=== PATIENT | male | born 1950 | race Caucasian/White ===

== ENCOUNTER → 2017-03-22 | Day surgery (SDC) | payer BC ==
[~2017-03-22] MED LIST: AMIO200T2 PO; ATOR40TA PO; CA C1TAB28 PO; CRESTOR10 MG PO; CYAN250T5 PO; DABI150C PO; FOLI1TAB16 PO; FURO40TA4 PO; HYDROmorphone 2 MG/ML VIAL IV PRN; IV RINGERS,LACTATED 1000ML 1,000 ML IV SCH; LIDOCAINE 1% 1 ML SYRINGE. ID PRN; LISI2.5T PO; MAGN400T3 PO; MELA3TAB2 PO; MORPHINE SULFATE 2 MG/ML DISP.SYRIN. IV PRN; NAPR220C4 PO; ONDANSETRON PF 4 MG/2 ML VIAL. IV PRN; POTA10TA5 PO; PROCHLORPERAZINE 10 MG/2 ML VIAL. IV PRN; PROPOFOL 20 ML IV ONE; VITA10003 PO; VITA1CAP PO; fentaNYL PF VIAL 100 MCG/2 ML VIAL IV PRN
[2017-03-22 08:13] VITALS: BP 134/78
--- NOTE | 2017-03-23 16:35 | PATHOLOGY ---
PATHOLOGY REPORT * * * * * * * * FINAL DIAGNOSIS: Esophageal biopsies, distal esophagus: - Segments of hyperplastic squamous esophageal mucosa and esophagogastric mucosa showing chronic inflammation, consistent with reflux esophagitis. COMMENT: Sections of the distal esophageal biopsy reveal multiple segments of hyperplastic squamous esophageal mucosa and a segment of esophagogastric mucosa showing chronic inflammation. The findings are consistent with reflux esophagitis. There is no evidence of Olivo's change, dysplasia or malignancy. (JPM:pit; 03/23/2017) REPORT ELECTRONICALLY SIGNED BY: Stephon Hernandez M.D. DATE/TIME: 03/23/2017 16:34 * * * * * * * * GROSS PATHOLOGY: Received in formalin labeled "Juan F Real, distal esophageal biopsies," are three segments of sierra soft tissue measuring from 0.2 up to 0.3 cm in maximum dimension. The specimen is submitted entirely in cassette A1. (JPM; 03/22/17) INITIAL CPT CODE(S): A; 90066 Professional services performed by [facility] [address] Technical services performed by [facility] at [address] [place] [address]. SPECIMEN(S) RECEIVED: A.Distal esophageal biopsies CLINICAL HISTORY: Olivo's, family history of colon cancer PATIENT: UJAN F REAL /AGE: 1107/26/1950 (Age: 66) PATIENT #: [id number] ALT CASE #: SPECIMEN COLLECTION DATE: 03/22/2017 SPECIMEN RECEIVED DATE: 03/22/2017 [facility] - [address] [place] [address] - PHONE: [phone] * * * END OF REPORT * * *
== END | disposition home or self-care (01) ==
LOC: ENDOS 05:42
PROVIDERS: ATTEND Internal Medicine Gastroenterology
DX: Z09 Encounter for follow-up examination after completed treatment for conditions other than malignant neoplasm (principal); Z80.0 Family history of malignant neoplasm of digestive organs; K57.30 Diverticulosis of large intestine without perforation or abscess without bleeding; K64.0 First degree hemorrhoids; K22.70 Barrett's esophagus without dysplasia; D50.9 Iron deficiency anemia, unspecified; E78.00 Pure hypercholesterolemia, unspecified; E78.5 Hyperlipidemia, unspecified; E11.9 Type 2 diabetes mellitus without complications; I10 Essential (primary) hypertension; M19.90 Unspecified osteoarthritis, unspecified site; Z72.89 Other problems related to lifestyle
CPT/HCPCS: 43239; 45378; 88305; J2704

== ENCOUNTER → 2019-05-09 | Outpatient (CLI) | payer MEDICARE ==
[2017-03-22 08:13] VITALS: BP 134/78
[~2019-05-09] MED LIST changes: -AMIO200T2 PO; +AMIO200T4 PO; -HYDROmorphone 2 MG/ML VIAL IV PRN; -IV RINGERS,LACTATED 1000ML 1,000 ML IV SCH; -LIDOCAINE 1% 1 ML SYRINGE. ID PRN; -MELA3TAB2 PO; +MELA3TAB56 PO; -MORPHINE SULFATE 2 MG/ML DISP.SYRIN. IV PRN; -ONDANSETRON PF 4 MG/2 ML VIAL. IV PRN; +POTA10TA12 PO; -POTA10TA5 PO; -PROCHLORPERAZINE 10 MG/2 ML VIAL. IV PRN; -PROPOFOL 20 ML IV ONE; -fentaNYL PF VIAL 100 MCG/2 ML VIAL IV PRN
--- NOTE | 2019-05-09 09:22 | KCIC ---
MRI Brain without contrast History: TIA, hearing loss for the last 3-4 years, memory loss, unsteady gait Technique: Multiplanar, multisequential noncontrast MR imaging was performed of the brain. Comparison: None Findings: There is some motion. There is no evidence of recent infarct or cytotoxic edema. Ventricular size is proportionate to the sulcal spaces, mild supratentorial atrophy somewhat greater of the parietal lobes.There is no significant midline shift, intraaxial mass effect, or focal abnormal extra-axial fluid collection. There is [id number] T2 and FLAIR hyperintense signal abnormality of the bilateral periatrial/parietal white matter greater on the left, otherwise mild T2 and FLAIR hyperintense signal abnormality of the supratentorial parenchyma. There is a focus of likely nonspecific calcification along the anterior left falx. There are several old bilateral cerebellar lacunar infarcts, also of the left ivonne and left basal ganglia. There are some small foci of old microhemorrhage of the left lentiform nucleus and right cerebellum. There has been lens surgery bilaterally. There is mild bilateral ethmoid air cell mucosal thickening. Mastoid air cells are mostly aerated, small focus of fluid on the right. Cerebellar tonsils are normal in location. There is preservation of the major intracranial flow-voids at the skull base.. There is no significant abnormality of the pineal gland or pituitary gland. There is preserved marrow signal of the clivus. Impression: 1. There is no evidence of recent infarct or intracranial mass effect. There is mild supratentorial atrophy somewhat more greatly affecting the parietal lobes. There are several old lacunar infarcts of the bilateral cerebellum, also foci of the left ivonne and left basal ganglia. Other scattered T2 and FLAIR hyperintense signal abnormality of the supratentorial parenchyma greatest of the parietal and periatrial white matter is probably due to chronic microvascular ischemic disease. Electronically signed by: Denis Durham MD (05/09/2019 9:19 AM) [facility]
== END | disposition home or self-care (01) ==
LOC: KCIC MRI 08:04
PROVIDERS: ATTEND Family Medicine
DX: I63.9 Cerebral infarction, unspecified (principal); G31.89 Other specified degenerative diseases of nervous system; G45.9 Transient cerebral ischemic attack, unspecified
CPT/HCPCS: 70551

== ENCOUNTER 2020-05-11 07:51 | Inpatient (IN) | payer MEDICARE ==
[~2020-05-11] VITALS: Ht 182.9 cm; Wt 98.3 kg
[~2020-05-11 07:51] MED LIST changes: -MAGN400T3 PO; +MAGN400T5 PO; +MELA3TAB4 PO; -MELA3TAB56 PO
[2020-05-11] MEDS ORDERED: PIPERACILLIN/TAZOBACTAM 3.375 GM in IV NORMAL SALINE 50ML 50 ML IV ONE (08:15)
[2020-05-11] MEDS ORDERED: ACETAMINOPHEN 325 MG TABLET. PO ONE (08:15)
[2020-05-11 08:29] LABS: BASO % 0 % (0-3); EOS % 0 % (0-3); HEMATOCRIT 43.1 % (39.0-53.0); HEMOGLOBIN 14.7 g/dL (13.0-17.5); LYMPH # 0.6 x10^3/uL (1.0-4.8); LYMPH % 5 % (24-48); MEAN CORPUSCULAR HEMOGLOBIN 34 pg (25-35); MEAN CORPUSCULAR HGB CONC 34 g/dL (31-37); MEAN CORPUSCULAR VOLUME 99 fL (79-100); MONO # 0.3 x10^3/uL (0.0-1.1); MONO % 2 % (0-9); NEUT # 10.8 x10^3/uL (1.8-7.7); NEUT % 92 % (31-73); PLATELET COUNT 247 x10^3/uL (140-400); RED BLOOD COUNT 4.37 x10^6/uL (4.30-5.70); RED CELL DISTRIBUTION WIDTH 13.5 % (11.5-14.5); WHITE BLOOD COUNT 11.7 x10^3/uL (4.0-11.0)
[2020-05-11 08:41] LABS: CALCIUM 9.2 mg/dL (8.5-10.1); CREATININE 1.3 mg/dL (0.7-1.3); GFR 54.7; POTASSIUM 3.8 mmol/L (3.5-5.1)
[2020-05-11 08:46] LABS: ALBUMIN/GLOBULIN RATIO 1.2 (1.0-1.7); TOTAL BILIRUBIN 1.1 mg/dL (0.2-1.0); TOTAL PROTEIN 7.4 g/dL (6.4-8.2)
[2020-05-11 09:07] LABS: BILIRUBIN,URINE NEGATIVE (NEG); CLARITY,URINE CLEAR; COLOR,URINE YELLOW
[2020-05-11 09:08] LABS: BACTERIA,URINE FEW /HPF (0-FEW); HYALINE CASTS, URINE OCCASIONAL /HPF; NITRITE,URINE NEGATIVE (NEG); PH,URINE 6.5 (<5.0-8.0); PROTEIN,URINE NEGATIVE (NEG-TRACE); RBC,URINE 0 /HPF (0-2); SQUAMOUS EPITHELIAL CELL,UR OCC /LPF; WBC,URINE OCC /HPF (0-4)
[2020-05-11] MEDS ORDERED: IOHEXOL 300 MG/ML 100ML VIAL. IV ONE (09:15)
[2020-05-11] MEDS ORDERED: CONTRAST GIVEN. MC PRN (09:15)
[2020-05-11] MEDS ORDERED: IOHEXOL 240 MG/ML 50ML VIAL. PO ONE (09:15)
[2020-05-11 09:46] LABS: C-REACTIVE PROTEIN 1.2 mg/L (0-3.3)
--- NOTE | 2020-05-11 10:50 | RAD ---
Exam: CT abdomen/pelvis with intravenous contrast Indication: Abdominal pain, fever Comparison: CT abdomen and pelvis 05/29/2015 Technique: Helical CT imaging performed of the abdomen and pelvis after the intravenous administration of 60 mL Omnipaque 300 intravenous contrast contrast. Sagittal and coronal reformats were obtained. One or more of the following individualized dose reduction techniques were utilized for this examination: 1. Automated exposure control 2. Adjustment of the mA and/or kV according to patient size 3. Use of iterative reconstruction technique. Findings: Lower chest: Scattered atelectasis in the dependent lower lobes. There are calcified hilar lymph nodes and extensive coronary artery calcifications. Surgical changes of median sternotomy noted. Heart size is normal. Liver: The liver is normal in size without focal lesion. Gallbladder/Biliary Tree: Cholelithiasis is noted. Bowel ducts are normal. Pancreas: Normal. Spleen: Normal. Adrenal Glands: Normal. Kidneys/Ureters/Bladder: Kidneys are normal in size and enhance symmetrically. No hydronephrosis or nephrolithiasis. Ureters and bladder are normal. Reproductive Organs: Prostate gland is normal. Stomach, small bowel, and colon: The appendix is dilated measuring 1.2 cm with marked mural thickening. There is mural thickening of the cecum and a long segment of the terminal ileum (approximately 8 cm in length). Mild fat stranding, trace free fluid, multiple small lymph nodes are seen in the right lower quadrant. No small bowel obstruction. There is mild sigmoid diverticulosis. Surgical changes of gastric bypass noted. Vasculature: Abdominal aorta is normal in caliber. Mild calcified aortoiliac atherosclerosis. Lymph Nodes: There are multiple prominent periaortic and mesenteric lymph nodes, similar to 2015. Other small lymph nodes in the right lower quadrant are new and likely reactive. Peritoneum and retroperitoneum: Trace free fluid in the right lower quadrant. No free air. No evidence of abscess. Bones: There is moderate degenerative disc disease in the lower lumbar spine. Moderate osteoarthrosis of the hips. Impression: 1. Findings of uncomplicated acute appendicitis. Wall thickening in the terminal ileum and cecum is likely reactive. Alternatively, this could all be seen with acute inflammatory bowel disease. 2. Cholelithiasis. 3. Sigmoid diverticulosis. Critical results were discussed by Dr. Dodson with Dr. August at 10:42 AM on 05/11/2020. FOR INTERNAL CODING PURPOSES Critical result: Findings discussed with REUBEN AUGUST at 05/11/2020 10:45 AM. RESULT CODE: (C) 1. Electronically signed by: Jasmyne Dodson MD (05/11/2020 10:46 AM) [id number]
[2020-05-11] MEDS ORDERED: MORPHINE SULFATE 10 MG/ML VIAL. IV ONE (11:15)
--- NOTE | 2020-05-11 12:42 | HP ---
ADMIT DATE: 05/11/2020 CHIEF COMPLAINT: Abdominal pain, weakness, fevers and nausea. HISTORY OF PRESENT ILLNESS: The patient is a pleasant middle-aged male, who presented with the above chief complaints. Basically, he has been having some abdominal pain for the past day or two. He tried taking some [id number]-wbo-[id number] medicines, but that did not work. He rates his symptoms at 9/10. It is worse with food, better with no food, describes it as agonizing. When he got to the ER, he had a temperature of 102. We gave him some Tylenol, his temperature has normalized. We have done a CAT scan now that is showing acute appendicitis. He also seems to have AFib with RVR. I discussed the case with ER physician and the nurse. We are going to admit the patient and consult Dr. Valdivia. I just got a call from Dr. Valdivia. He is checking into the situation as well. PAST MEDICAL HISTORY: Gastric bypass, hypertension, hyperlipidemia, chronic anticoagulation, AFib, arthritis. ALLERGIES: LISINOPRIL. FAMILY HISTORY: Diabetes. SOCIAL HISTORY: He does not drink, smoke or take drugs. He lives at home with his . MEDICATIONS: Reviewed, please refer the MRAD. REVIEW OF SYSTEMS: GENERAL: No history of weight change. SKIN: No bruising, hair changes or rashes. EYES: No blurred, double or loss of vision. NOSE AND THROAT: No history of nosebleeds, hoarseness or sore throat. HEART: No history of palpitations, chest pain or shortness of breath on exertion. LUNGS: Denies cough, hemoptysis, wheezing or shortness of breath. GASTROINTESTINAL: He complains of abdominal pain, although he is feeling better now. GENITOURINARY: No history of frequency, urgency, hesitancy or nocturia. NEUROLOGIC: Denies history of numbness, tingling, tremor. PSYCHIATRIC: No history of panic, anxiety or depression. ENDOCRINE: No history of heat or cold intolerance, polyuria or polydipsia. EXTREMITIES: Denies muscle weakness, joint pain, pain on walking or stiffness. PHYSICAL EXAMINATION: VITALS: Within normal limits and are stable. GENERAL: No apparent distress. Alert and oriented. HEENT: Normal cephalic atraumatic, external auditory canals are patent EYES: Extraocular muscles are intact, pupils are equally round and reactive to light and accommodation MUSCULOSKELETAL: Well developed, well nourished, good range of motion ENDOCRINE: No thyromegaly was palpated LYMPHATICS: No cervical chain or axillary nodes were noted HEMATOPOIETIC: No bruising NECK: Supple, no JVD, no thyromegaly was noted. LUNGS: Clear to auscultation in all lung hughes without rhonchi or wheezing. HEART: He has irregular S1, S2. ABDOMEN: He has decreased bowel sounds with some slight tenderness in the right lower quadrant. EXTREMITIES: Without any cyanosis, clubbing, or edema. Pedal pulses intact, Homans sign is negative. NEUROLOGIC: He is a little anxious, but stable and pleasant. PSYCHIATRIC: Normal affect, normal mood. Stable. SKIN: No ulcerations or rashes, good skin turgor, no jaundice. VASCULAR: Good capillary refill, neurovascular bundle appears to be intact. LABORATORY DATA: White count 11, hemoglobin 14, platelets 247. Electrolytes: Sodium 133, potassium 3.8, chloride 95, bicarbonate 29, BUN 15, creatinine 1.3, glucose 156. ASSESSMENT AND PLAN: Appendicitis, atrial fibrillation with RVR, hyponatremia, leukocytosis. The patient has been admitted. We will start IV antibiotics. Consult General Surgery. I talked to Dr. Valdivia. He will be having someone checked with the patient shortly. Home meds. We will consider IV rate control if necessary. Consult Cardiology. DVT prophylaxis. Full code. Long-term prognosis is guarded. MARKEL CERDA DO DR: ADILENE/roger JOB#: [id number] / [id number]
--- NOTE | 2020-05-11 13:12 | PDOC2 ---
ORI HAJI REAL ESTATE MANAGEMENT SPECIALIST 05/11/20 1312: CONSULT Date of Consult Date of Consult DATE: 05/11/20 TIME: 13:06 Reason for Consult Reason for Consult: appendicitis Referring Physician Referring Physician: ER Identification/Chief Complaint Chief Complaint abdominal pain Source Source: Chart review, Patient History of Present Illness Reason for Visit: Very poor historian He reports woke up with lower abdominal pain. It did not improve, tried some prune juice, however the pain became severe enough he could not walk. Denies nausea or emesis. Denies any IBD hx Pain is now improved with medication. Fevers on admission to ER Took his pradaxa this AM Past Medical History Cardiovascular: CAD, CHF, HTN, Hyperlipidemia CENTRAL NERVOUS SYSTEM: Dementia Hepatobiliary: Cirrhosis Endocrine: Diabetes Past Surgical History Past Surgical History: Hernia Repair, Other (gastric bypass) Family History Family History: Other (noncontributory to current illness ) Social History No ALCOHOL: other (reports no heavy drinking in over 10 years, does still have an occassional beer) Drugs: None Current Medications Current Medications Current Medications Acetaminophen (Tylenol) 650 mg 1X ONCE PO Last administered on 05/11/20at 08:26; Start 05/11/20 at 08:15; Stop 05/11/20 at 08:16; Status DC Piperacillin Sod/ Tazobactam Sod 3.375 gm/Sodium Chloride 50 ml @ 100 mls/hr 1X ONCE IV Last administered on 05/11/20at 08:27; Start 05/11/20 at 08:15; Stop 05/11/20 at 08:44; Status DC Iohexol (Omnipaque 240 Mg/ml) 30 ml 1X ONCE PO Last administered on 05/11/20at 09:40; Start 05/11/20 at 09:15; Stop 05/11/20 at 09:16; Status DC Iohexol (Omnipaque 300 Mg/ml) 60 ml 1X ONCE IV Last administered on 05/11/20at 09:15; Start 05/11/20 at 09:15; Stop 05/11/20 at 09:16; Status DC Info (CONTRAST GIVEN -- Rx MONITORING) 1 each PRN DAILY PRN MC SEE COMMENTS; Start 05/11/20 at 09:15; Stop 05/13/20 at 09:14 Morphine Sulfate (Morphine Sulfate) 5 mg 1X ONCE IV Last administered on 05/11/20at 11:28; Start 05/11/20 at 11:15; Stop 05/11/20 at 11:16; Status DC Active Scripts Active Reported Melatonin 3 Mg Tablet 10 Mg PO HS Lisinopril 2.5 Mg Tablet 1 Tab PO DAILY B-12 (Cyanocobalamin (Vitamin B-12)) 250 Mcg Tablet 250 Mcg PO DAILY Aleve (Naproxen Sodium) 220 Mg Capsule 220 Mg PO PRN PRN Lipitor (Atorvastatin Calcium) 40 Mg Tablet 1 Tab PO QHS Vitamin D3 1,000 Unit Tablet (Ca Cmb No.1/Vit D3/B-6/Fa/B12) 1 Each Tablet 1 Each PO DAILY Vitamin A 10,000 Unit Capsule 10,000 Unit PO DAILY Folic Acid 1 Mg Tablet 1 Mg PO DAILY Magnesium Oxide 400 Mg Tablet 400 Mg PO BID Pradaxa (Dabigatran Etexilate Mesylate) 150 Mg Capsule 150 Mg PO BID Amiodarone Hcl 200 Mg Tablet 100 Mg PO DAILY Furosemide 40 Mg Tablet 40 Mg PO DAILY Klor-Con 10 (Potassium Chloride) 10 Meq Tablet.er 10 Meq PO DAILY Allergies Allergies: Coded Allergies: lisinopril (Verified Allergy, Intermediate, 03/22/17) cough ROS General: YES: Other (+ fevers ); No: Chills PSYCHOLOGICAL ROS: No: Anxiety, Depression Eyes: No Blurry vision, No Double vision HEENT: No: Heacaches, Sore Throat Hematological and Lymphatic: YES: Bleeding Problems; No: Blood Clots Respiratory: No: Cough, Shortness of breath Cardiovascular: No Chest Pain, No Palpitations Gastrointestinal: Yes Other (see hpi) Genitourinary: No Dysuria, No Hematuria Musculoskeletal: No Joint Pain, No Muscle Pain Neurological: No Impaired Coord/balance, No Numbness/Tingling Skin: No Pruritus, No Rash Physical Exam General: Alert, Oriented X3, Cooperative HEENT: Atraumatic, PERRLA Lungs: Clear to auscultation, Normal air movement Heart: Other (tachy, afib) Abdomen: Soft, Other (currently nontender on exam) Extremities: No clubbing, No cyanosis Skin: No rashes, No breakdown Neuro: Normal speech, Sensation intact Psych/Mental Status: Mental status NL, Mood NL MUSCULOSKELETAL: No deformity, No swelling Vitals VITALS Vital Signs Date Time Temp Pulse Resp B/P (MAP) Pulse Ox O2 Delivery O2 Flow Rate FiO2 05/11/20 11:28 17 97 Room Air 05/11/20 08:00 102.2 112 168/80 (109) 102.2 Labs Labs Laboratory Tests Test 05/11/20 08:10 05/11/20 08:36 05/11/20 11:35 05/11/20 12:08 White Blood Count 11.7 x10^3/uL (4.0-11.0) Red Blood Count 4.37 x10^6/uL (4.30-5.70) Hemoglobin 14.7 g/dL (13.0-17.5) Hematocrit 43.1 % (39.0-53.0) Mean Corpuscular Volume 99 fL (79-100) Mean Corpuscular Hemoglobin 34 pg (25-35) Mean Corpuscular Hemoglobin Concent 34 g/dL (31-37) Red Cell Distribution Width 13.5 % (11.5-14.5) Platelet Count 247 x10^3/uL (140-400) Neutrophils (%) (Auto) 92 % (31-73) Lymphocytes (%) (Auto) 5 % (24-48) Monocytes (%) (Auto) 2 % (0-9) Eosinophils (%) (Auto) 0 % (0-3) Basophils (%) (Auto) 0 % (0-3) Neutrophils # (Auto) 10.8 x10^3/uL (1.8-7.7) Lymphocytes # (Auto) 0.6 x10^3/uL (1.0-4.8) Monocytes # (Auto) 0.3 x10^3/uL (0.0-1.1) Eosinophils # (Auto) 0.0 x10^3/uL (0.0-0.7) Basophils # (Auto) 0.0 x10^3/uL (0.0-0.2) Sodium Level 133 mmol/L (136-145) Potassium Level 3.8 mmol/L (3.5-5.1) Chloride Level 95 mmol/L (98-107) Carbon Dioxide Level 29 mmol/L (21-32) Anion Gap 9 (6-14) Blood Urea Nitrogen 15 mg/dL (8-26) Creatinine 1.3 mg/dL (0.7-1.3) Estimated GFR (Cockcroft-Gault) 54.7 BUN/Creatinine Ratio 12 (6-20) Glucose Level 156 mg/dL (70-99) Lactic Acid Level 3.1 mmol/L (0.4-2.0) 1.3 mmol/L (0.4-2.0) Calcium Level 9.2 mg/dL (8.5-10.1) Total Bilirubin 1.1 mg/dL (0.2-1.0) Aspartate Amino Transf (AST/SGOT) 31 U/L (15-37) Alanine Aminotransferase (ALT/SGPT) 33 U/L (16-63) Alkaline Phosphatase 128 U/L (46-116) Lactate Dehydrogenase 207 U/L (85-227) C-Reactive Protein, Quantitative 1.2 mg/L (0-3.3) Total Protein 7.4 g/dL (6.4-8.2) Albumin 4.0 g/dL (3.4-5.0) Albumin/Globulin Ratio 1.2 (1.0-1.7) Lipase 100 U/L (73-393) Urine Collection Type Void Urine Color Yellow Urine Clarity Clear Urine pH 6.5 (<5.0-8.0) Urine Specific [place] 1.015 (1.000-1.030) Urine Protein Negative mg/dL (NEG-TRACE) Urine Glucose (UA) Negative mg/dL (NEG) Urine Ketones (Stick) Negative mg/dL (NEG) Urine Blood Negative (NEG) Urine Nitrite Negative (NEG) Urine Bilirubin Negative (NEG) Urine Urobilinogen Dipstick 1.0 mg/dL (0.2 mg/dL) Urine Leukocyte Esterase Negative (NEG) Urine RBC 0 /HPF (0-2) Urine WBC Occ /HPF (0-4) Urine Squamous Epithelial Cells Occ /LPF Urine Bacteria Few /HPF (0-FEW) Urine Hyaline Casts Occasional /HPF SARS-CoV-2 Antigen (Rapid) Negative (NEGATIVE) Laboratory Tests Test 05/11/20 08:10 05/11/20 08:36 05/11/20 11:35 05/11/20 12:08 White Blood Count 11.7 x10^3/uL (4.0-11.0) Red Blood Count 4.37 x10^6/uL (4.30-5.70) Hemoglobin 14.7 g/dL (13.0-17.5) Hematocrit 43.1 % (39.0-53.0) Mean Corpuscular Volume 99 fL (79-100) Mean Corpuscular Hemoglobin 34 pg (25-35) Mean Corpuscular Hemoglobin Concent 34 g/dL (31-37) Red Cell Distribution Width 13.5 % (11.5-14.5) Platelet Count 247 x10^3/uL (140-400) Neutrophils (%) (Auto) 92 % (31-73) Lymphocytes (%) (Auto) 5 % (24-48) Monocytes (%) (Auto) 2 % (0-9) Eosinophils (%) (Auto) 0 % (0-3) Basophils (%) (Auto) 0 % (0-3) Neutrophils # (Auto) 10.8 x10^3/uL (1.8-7.7) Lymphocytes # (Auto) 0.6 x10^3/uL (1.0-4.8) Monocytes # (Auto) 0.3 x10^3/uL (0.0-1.1) Eosinophils # (Auto) 0.0 x10^3/uL (0.0-0.7) Basophils # (Auto) 0.0 x10^3/uL (0.0-0.2) Sodium Level 133 mmol/L (136-145) Potassium Level 3.8 mmol/L (3.5-5.1) Chloride Level 95 mmol/L (98-107) Carbon Dioxide Level 29 mmol/L (21-32) Anion Gap 9 (6-14) Blood Urea Nitrogen 15 mg/dL (8-26) Creatinine 1.3 mg/dL (0.7-1.3) Estimated GFR (Cockcroft-Gault) 54.7 BUN/Creatinine Ratio 12 (6-20) Glucose Level 156 mg/dL (70-99) Lactic Acid Level 3.1 mmol/L (0.4-2.0) 1.3 mmol/L (0.4-2.0) Calcium Level 9.2 mg/dL (8.5-10.1) Total Bilirubin 1.1 mg/dL (0.2-1.0) Aspartate Amino Transf (AST/SGOT) 31 U/L (15-37) Alanine Aminotransferase (ALT/SGPT) 33 U/L (16-63) Alkaline Phosphatase 128 U/L (46-116) Lactate Dehydrogenase 207 U/L (85-227) C-Reactive Protein, Quantitative 1.2 mg/L (0-3.3) Total Protein 7.4 g/dL (6.4-8.2) Albumin 4.0 g/dL (3.4-5.0) Albumin/Globulin Ratio 1.2 (1.0-1.7) Lipase 100 U/L (73-393) Urine Collection Type Void Urine Color Yellow Urine Clarity Clear Urine pH 6.5 (<5.0-8.0) Urine Specific [place] 1.015 (1.000-1.030) Urine Protein Negative mg/dL (NEG-TRACE) Urine Glucose (UA) Negative mg/dL (NEG) Urine Ketones (Stick) Negative mg/dL (NEG) Urine Blood Negative (NEG) Urine Nitrite Negative (NEG) Urine Bilirubin Negative (NEG) Urine Urobilinogen Dipstick 1.0 mg/dL (0.2 mg/dL) Urine Leukocyte Esterase Negative (NEG) Urine RBC 0 /HPF (0-2) Urine WBC Occ /HPF (0-4) Urine Squamous Epithelial Cells Occ /LPF Urine Bacteria Few /HPF (0-FEW) Urine Hyaline Casts Occasional /HPF SARS-CoV-2 Antigen (Rapid) Negative (NEGATIVE) Assessment/Plan Assessment/Plan acute appendicitis significant cardiac hx hx of cirrhosis on pradaxa will check INR will review with Dr Villavicencio on surgery planning --will plan for appy in AM --allow 24hrs off pradaxa--d/w IPC, IV abx cardiology consult pending PACO VILLAVICENCIO MD 05/11/20 1435: CONSULT Assessment/Plan Assessment/Plan Pt seen and examined; 69 year old male with acute onset abdominal and back pain this morning. Evaluation suggestive of appendicitis. Exam: alert, oriented, currently comfortable, lungs clear, heart RR and R, abdomen soft, some tenderness R side, RUQ, ext neg for edema. CT and labs reviewed; Suspect appy, IBD possible; Recommend proceeding to surgery. He took Pradaxa today; ideally would like to hold 48 hours prior to surgery; given current circumstances will hold 24 hours, and plan for surgery in AM. Reviewed the plan with the patient. ORI HAJI APRN May 11, 2020 13:12 PACO VILLAVICENCIO MD May 11, 2020 14:35
[2020-05-11 13:29] LABS: PROTHROMBIN TIME PATIENT 13.9 SEC (11.7-14.0)
[2020-05-11 14:20] VITALS: BP 131/62
--- NOTE | 2020-05-11 14:24 | PDOC2 ---
CARDIAC CONSULT DATE OF CONSULT Date of Consult DATE: 05/11/20 TIME: 14:17 REASON FOR CONSULT Reason for Consult: AFIB with RVR REFERRING PHYSICIAN Referring Physician: Dr. Pride SOURCE Source: Chart review, Patient HISTORY OF PRESENT ILLNESS HISTORY OF PRESENT ILLNESS This is a 69 yo male, with a history of AFIB on Pradaxa, who presented secondary to abdominal pain. Patient reports he woke up with pain this morning in his abdomen. No nausea.vomiting. Describes as cramping. Denies any chest pain, palpitations, SOA, or diaphoresis. Further imaging notable for acute pancreatitis. Rate mildly elevated upon arrival. PAST MEDICAL HISTORY Cardiovascular: AFIB, CAD, CHF, HTN GI: GERD Heme/Onc: Anemia NOS, Other (Olivo's Esophagus ) Hepatobiliary: Cirrhosis Musculoskeletal: Osteoarthritis Endocrine: Diabetes PAST SURGICAL HISTORY Past Surgical History: CABG, Tonsillectomy, Other (gastric bypass ) FAMILY HISTORY Family History: Hypertension SOCIAL HISTORY Smoke: No ALCOHOL: none Drugs: None Lives: with Family CURRENT MEDICATIONS CURRENT MEDICATIONS Current Medications Medications (Trade) Dose Ordered Sig/Rai Route PRN Reason Start Time Stop Time Status Last Admin Dose Admin Acetaminophen (Tylenol) 650 mg 1X ONCE PO 05/11/20 08:15 05/11/20 08:16 DC 05/11/20 08:26 Piperacillin Sod/ Tazobactam Sod 3.375 gm/Sodium Chloride 50 ml @ 100 mls/hr 1X ONCE IV 05/11/20 08:15 05/11/20 08:44 DC 05/11/20 08:27 Iohexol (Omnipaque 240 Mg/ml) 30 ml 1X ONCE PO 05/11/20 09:15 05/11/20 09:16 DC 05/11/20 09:40 Iohexol (Omnipaque 300 Mg/ml) 60 ml 1X ONCE IV 05/11/20 09:15 05/11/20 09:16 DC 05/11/20 09:15 Morphine Sulfate (Morphine Sulfate) 5 mg 1X ONCE IV 05/11/20 11:15 05/11/20 11:16 DC 05/11/20 11:28 ALLERGIES ALLERGIES: Coded Allergies: lisinopril (Verified Allergy, Intermediate, 03/22/17) cough ROS Review of System 14 point ROS conducted with pertinent positives noted above in HPI PHYSICAL EXAM General: Alert, Oriented X3, Cooperative, No acute distress HEENT: Atraumatic, Mucous membr. moist/pink Lungs: Clear to auscultation Heart: Other (IRRR- tele AFIB rate near 90) Abdomen: Other (diffused tenderness ) Extremities: No edema, Normal pulses Skin: No significant lesion Neuro: Normal speech, Sensation intact Psych/Mental Status: Mental status NL, Mood NL MUSCULOSKELETAL: Osteoarthritic changes both hands VITALS/I&O VITALS/I&O: Vital Signs Date Time Temp Pulse Resp B/P (MAP) Pulse Ox O2 Delivery O2 Flow Rate FiO2 05/11/20 11:28 17 97 Room Air 05/11/20 08:00 102.2 112 168/80 (109) 102.2 LABS Lab: Laboratory Tests Test 05/11/20 08:10 05/11/20 08:36 05/11/20 11:35 05/11/20 12:08 White Blood Count 11.7 x10^3/uL (4.0-11.0) H Red Blood Count 4.37 x10^6/uL (4.30-5.70) Hemoglobin 14.7 g/dL (13.0-17.5) Hematocrit 43.1 % (39.0-53.0) Mean Corpuscular Volume 99 fL (79-100) Mean Corpuscular Hemoglobin 34 pg (25-35) Mean Corpuscular Hemoglobin Concent 34 g/dL (31-37) Red Cell Distribution Width 13.5 % (11.5-14.5) Platelet Count 247 x10^3/uL (140-400) Neutrophils (%) (Auto) 92 % (31-73) H Lymphocytes (%) (Auto) 5 % (24-48) L Monocytes (%) (Auto) 2 % (0-9) Eosinophils (%) (Auto) 0 % (0-3) Basophils (%) (Auto) 0 % (0-3) Neutrophils # (Auto) 10.8 x10^3/uL (1.8-7.7) H Lymphocytes # (Auto) 0.6 x10^3/uL (1.0-4.8) L Monocytes # (Auto) 0.3 x10^3/uL (0.0-1.1) Eosinophils # (Auto) 0.0 x10^3/uL (0.0-0.7) Basophils # (Auto) 0.0 x10^3/uL (0.0-0.2) Prothrombin Time 13.9 SEC (11.7-14.0) Prothrombin Time INR 1.1 (0.8-1.1) Sodium Level 133 mmol/L (136-145) L Potassium Level 3.8 mmol/L (3.5-5.1) Chloride Level 95 mmol/L (98-107) L Carbon Dioxide Level 29 mmol/L (21-32) Anion Gap 9 (6-14) Blood Urea Nitrogen 15 mg/dL (8-26) Creatinine 1.3 mg/dL (0.7-1.3) Estimated GFR (Cockcroft-Gault) 54.7 BUN/Creatinine Ratio 12 (6-20) Glucose Level 156 mg/dL (70-99) H Lactic Acid Level 3.1 mmol/L (0.4-2.0) H 1.3 mmol/L (0.4-2.0) Calcium Level 9.2 mg/dL (8.5-10.1) Total Bilirubin 1.1 mg/dL (0.2-1.0) H Aspartate Amino Transferase (AST) 31 U/L (15-37) Alanine Aminotransferase (ALT) 33 U/L (16-63) Alkaline Phosphatase 128 U/L (46-116) H Lactate Dehydrogenase 207 U/L (85-227) C-Reactive Protein, Quantitative 1.2 mg/L (0-3.3) Total Protein 7.4 g/dL (6.4-8.2) Albumin 4.0 g/dL (3.4-5.0) Albumin/Globulin Ratio 1.2 (1.0-1.7) Lipase 100 U/L (73-393) Urine Collection Type Void Urine Color Yellow Urine Clarity Clear Urine pH 6.5 (<5.0-8.0) Urine Specific [place] 1.015 (1.000-1.030) Urine Protein Negative mg/dL (NEG-TRACE) Urine Glucose (UA) Negative mg/dL (NEG) Urine Ketones (Stick) Negative mg/dL (NEG) Urine Blood Negative (NEG) Urine Nitrite Negative (NEG) Urine Bilirubin Negative (NEG) Urine Urobilinogen Dipstick 1.0 mg/dL (0.2 mg/dL) Urine Leukocyte Esterase Negative (NEG) Urine RBC 0 /HPF (0-2) Urine WBC Occ /HPF (0-4) Urine Squamous Epithelial Cells Occ /LPF Urine Bacteria Few /HPF (0-FEW) Urine Hyaline Casts Occasional /HPF SARS-CoV-2 Antigen (Rapid) Negative (NEGATIVE) Laboratory Tests 05/11/20 08:10 Laboratory Tests 05/11/20 08:10 ECHOCARDIOGRAM ECHOCARDIOGRAM 01/28/20 - 2-D + DOPPLER ECHOCARDIOGRAM Mild reduction in LV systolic function estimated 45%. Biplane EF 46%. Mild dilation of left ventricle: LV diastolic volume index 74 mL Regional wall motion abnormalities as below. Indeterminate severity of diastolic dysfunction given underlying arrhythmia. However, some degree of diastolic dysfunction exists given reduced left ventricu lar ejection fraction. Mild dilation of the left atrium. Trace mitral regurgitation, sclerotic trileaflet aortic valve. No other clinically significant valve disease seen. The right ventricle is normal for size and systolic function. No pericardial effusion. Central venous pressure estimated 0 to 5 mmHg. Peak PA systolic pressure mated 18 to 19 mmHg. Visualized portions of the aortic root and ascending thoracic aorta are within normal limits. HEART CATH HEART CATH 09/13/19 - Procedure: D-SPECT MULTI GATED THALLIUM REGADENOSON MPI STRESS TEST FINDINGS: Pharmacological Stress Electrocardiogram: The patient's resting heart rate was 79 bpm and the resting blood pressure was 120/79. The patients peak stress heart rate was 97 bpm and the peak stress blood pressure was 102/58. The patient experienced no chest pain. The resting ECG shows Atrial fibrillation, occasional PVCs occurred. Following Regadenoson infusion there are no new diagnostic ECG changes. Conclusion: Pharmacologic stress ECG is negative for ischemia. ASSESSMENT/PLAN ASSESSMENT/PLAN 1. Abdominal pain; CT with acute appendicitis 2. Leukocytosis, lactic acidosis, fevers 3. Permanent AFIB with RVR; rate now controlled. Probably tachy/lizandro. H/o bradycardia; hench why he is not on BB therapy per record review. on Pradaxa for stroke prophylaxis. 4. CAD s/p CABG 2001; clinically stable. Recent stress test without evidence of ischemia. Follows with Dr. Hummel with [facility]. 5. Chronic systolic CHF; clinically compensated 6. ICM; LVEF 45% per recent echo as noted above 7. Hypertension; controlled 8. Hyperlipidemia; statin 9. Diabetes,II Recommendations HF optimization with Lasix, ARB Discontinue Amiodarone. Is permanent AFIB per record review and no longer taking. Okay to hold Pradaxa for surgery. Recent ischemic workup as noted above. Monitor tele for tachy/lizandro Supportive care HARVINDER ROJAS APRN May 11, 2020 14:23
[2020-05-11] MEDS ORDERED: HYDROmorphone 2 MG/ML VIAL IVP PRN ×3 (14:45)
[2020-05-11 14:49] LABS: CHOLESTEROL/HDL RATIO 1.7
--- NOTE | 2020-05-11 14:57 | PHYS DOC ---
Past Medical History Past Medical History: A-Fib, Arthritis, CAD, CHF, GERD, High Cholesterol, Hypertension, [place] Additional Past Medical Histor: Pancytopenia, Cirrhosis Past Surgical History: Coronary Bypass Surgery, Gastric Bypass, Tonsillectomy, Other Additional Past Surgical Histo: Bilat Cataract graft Smoking Status: Current Every Day Smoker Additional Information: CHEWING TOBACCO Alcohol Use: Occasionally General Adult EDM: Chief Complaint: ABDOMINAL PAIN HPI: HPI: Patient is a 69-year-old male who presents to the emergency room complaining of abdominal pain. Patient states that this morning he woke up with severe mid abdominal pain that felt like pressure and cramping. He thought that he needed to have a bowel movement and was able to have a normal bowel movement this morning. He continued to have significant pain that got much worse over time. He then developed tremors and chills. He states that he generally felt very unwell as if he was going to . He denies any chest pain or shortness of breath. He states that it is much better now than it was prior to arrival. He still has some lower abdominal pain but not as bad as it was an hour ago. He is got some nausea and has had an episode of vomiting. Review of Systems: Review of Systems: General: Denies fever, chills, sweats, fatigue Eyes: Denies drainage, blurred vision, eye redness HENT: Denies rhinorrhea, sore throat, earache Respiratory: Denies cough, shortness of breath, wheezing Cardiac: Denies edema, palpitations, chest pain GI: Reports nausea, vomiting, abdominal pain MSK: Denies neck pain. Reports back pain Skin: Denies rash, jaundice Neuro: Denies headache, dizziness Psychiatric: Denies SI/HI Heart Score: Risk Factors: Risk Factors: DM, Current or recent (<one month) smoker, HTN, HLP, family history of CAD, obesity. Risk Scores: Score 0 - 3: 2.5% MACE over next 6 weeks - Discharge Home Score 4 - 6: 20.3% MACE over next 6 weeks - Admit for Clinical Observation Score 7 - 10: 72.7% MACE over next 6 weeks - Early Invasive Strategies Current Medications: Current Medications Medications (Trade) Dose Ordered Sig/Rai Start Time Stop Time Status Last Admin Dose Admin Acetaminophen (Tylenol) 650 mg 1X ONCE 05/11/20 08:15 05/11/20 08:16 DC 9/14/20 08:26 650 MG Info (CONTRAST GIVEN -- Rx MONITORING) 1 each PRN DAILY PRN 05/11/20 09:15 05/13/20 09:14 Iohexol (Omnipaque 240 Mg/ml) 30 ml 1X ONCE 05/11/20 09:15 05/11/20 09:16 DC 05/11/20 09:40 30 ML Iohexol (Omnipaque 300 Mg/ml) 60 ml 1X ONCE 05/11/20 09:15 05/11/20 09:16 DC 05/11/20 09:15 60 ML Morphine Sulfate (Morphine Sulfate) 5 mg 1X ONCE 05/11/20 11:15 05/11/20 11:16 DC 05/11/20 11:28 5 MG Piperacillin Sod/ Tazobactam Sod 3.375 gm/Sodium Chloride 50 ml @ 100 mls/hr 1X ONCE 05/11/20 08:15 05/11/20 08:44 DC 05/11/20 08:27 100 MLS/HR Allergies: Allergies: Allergies Coded Allergies Type Severity Reaction Last Updated Verified lisinopril Allergy Intermediate 03/22/17 Yes Physical Exam: PE: General: Awake, alert, NAD. Well Nourished, well hydrated. Cooperative HEENT: Atraumatic, EOMI, PERRL, airway patent, moist oral mucosa Neck: Supple, trachea midline Respiratory: CTA bilaterally, normal effort, no wheezing/crackles CV: RRR, no murmur, cap refill <2 GI: Soft, nondistended, periumbilical and right lower quadrant abdominal tenderness, no masses MSK: No obvious deformities Skin: Warm, dry, intact Neuro: A&O x3, speech NL, sensory and motor grossly intact, no focal deficits Psych: Normal affect, normal mood, not suicidal or homicidal Current Patient Data: Labs: Laboratory Tests Test 05/11/20 08:10 05/11/20 08:36 05/11/20 11:35 05/11/20 12:08 White Blood Count 11.7 x10^3/uL (4.0-11.0) H Red Blood Count 4.37 x10^6/uL (4.30-5.70) Hemoglobin 14.7 g/dL (13.0-17.5) Hematocrit 43.1 % (39.0-53.0) Mean Corpuscular Volume 99 fL (79-100) Mean Corpuscular Hemoglobin 34 pg (25-35) Mean Corpuscular Hemoglobin Concent 34 g/dL (31-37) Red Cell Distribution Width 13.5 % (11.5-14.5) Platelet Count 247 x10^3/uL (140-400) Neutrophils (%) (Auto) 92 % (31-73) H Lymphocytes (%) (Auto) 5 % (24-48) L Monocytes (%) (Auto) 2 % (0-9) Eosinophils (%) (Auto) 0 % (0-3) Basophils (%) (Auto) 0 % (0-3) Neutrophils # (Auto) 10.8 x10^3/uL (1.8-7.7) H Lymphocytes # (Auto) 0.6 x10^3/uL (1.0-4.8) L Monocytes # (Auto) 0.3 x10^3/uL (0.0-1.1) Eosinophils # (Auto) 0.0 x10^3/uL (0.0-0.7) Basophils # (Auto) 0.0 x10^3/uL (0.0-0.2) Prothrombin Time 13.9 SEC (11.7-14.0) Prothrombin Time INR 1.1 (0.8-1.1) Sodium Level 133 mmol/L (136-145) L Potassium Level 3.8 mmol/L (3.5-5.1) Chloride Level 95 mmol/L (98-107) L Carbon Dioxide Level 29 mmol/L (21-32) Anion Gap 9 (6-14) Blood Urea Nitrogen 15 mg/dL (8-26) Creatinine 1.3 mg/dL (0.7-1.3) Estimated GFR (Cockcroft-Gault) 54.7 BUN/Creatinine Ratio 12 (6-20) Glucose Level 156 mg/dL (70-99) H Lactic Acid Level 3.1 mmol/L (0.4-2.0) H 1.3 mmol/L (0.4-2.0) Calcium Level 9.2 mg/dL (8.5-10.1) Total Bilirubin 1.1 mg/dL (0.2-1.0) H Aspartate Amino Transferase (AST) 31 U/L (15-37) Alanine Aminotransferase (ALT) 33 U/L (16-63) Alkaline Phosphatase 128 U/L (46-116) H Lactate Dehydrogenase 207 U/L (85-227) C-Reactive Protein, Quantitative 1.2 mg/L (0-3.3) Total Protein 7.4 g/dL (6.4-8.2) Albumin 4.0 g/dL (3.4-5.0) Albumin/Globulin Ratio 1.2 (1.0-1.7) Triglycerides Level 64 mg/dL (0-150) Cholesterol Level 168 mg/dL (0-200) LDL Cholesterol, Calculated 56 mg/dL (0-100) VLDL Cholesterol, Calculated 13 mg/dL (0-40) Non-HDL Cholesterol Calculated 69 mg/dL (0-129) HDL Cholesterol 99 mg/dL (40-60) H Cholesterol/HDL Ratio 1.7 Lipase 100 U/L (73-393) Urine Collection Type Void Urine Color Yellow Urine Clarity Clear Urine pH 6.5 (<5.0-8.0) Urine Specific [place] 1.015 (1.000-1.030) Urine Protein Negative mg/dL (NEG-TRACE) Urine Glucose (UA) Negative mg/dL (NEG) Urine Ketones (Stick) Negative mg/dL (NEG) Urine Blood Negative (NEG) Urine Nitrite Negative (NEG) Urine Bilirubin Negative (NEG) Urine Urobilinogen Dipstick 1.0 mg/dL (0.2 mg/dL) Urine Leukocyte Esterase Negative (NEG) Urine RBC 0 /HPF (0-2) Urine WBC Occ /HPF (0-4) Urine Squamous Epithelial Cells Occ /LPF Urine Bacteria Few /HPF (0-FEW) Urine Hyaline Casts Occasional /HPF SARS-CoV-2 Antigen (Rapid) Negative (NEGATIVE) Laboratory Tests 05/11/20 08:10 Laboratory Tests 05/11/20 08:10 Vital Signs: Vital Signs Date Time Temp Pulse Resp B/P (MAP) Pulse Ox O2 Delivery O2 Flow Rate FiO2 05/11/20 11:28 17 97 Room Air 05/11/20 08:00 102.2 112 168/80 (109) 102.2 EKG: EKG: [] Radiology/Procedures: Radiology/Procedures: [] Course & Med Decision Making: Course & Med Decision Making Pertinent Labs and Imaging studies reviewed. (See chart for details) Patient is a 69 year-old male with a history of hypertension and atrial fibrillation who presents to the Emergency Room complaining of abdominal pain, vomiting, fever. On exam, patient has abdominal tenderness and is in atrial fibrillation with RVR. Due to patients history, age, and exam work up will need to be done to evaluate for intra-abdominal pathology. Given the patient is tachycardic with a fever sepsis work-up was ordered and patient had blood cultures drawn and was given Zosyn. It is likely that patient was A. fib with R VR is due to fever and infection. work up ordered includes CBC, CMP, lipase, UA, CT abdomen and pelvis. Patient's pain does not epigastric and a cardiac evaluation does not be needed for atypical pain. Ddx includes AAA, diverticulitis, colitis, appendicitis, cholecystitis, gastroenteritis. Work up w as reviewed and patient has an acute appendicitis. He will be admitted to the hospital and surgery will be consulted. Work up was reviewed and was remarkable for appendicitis. At this time, patient would benefit from further work up and management. Patient is not stable for discharge at this time. Results, vitals, interventions, and plan was discussed with the patient. Patient was given opportunity to ask any questions and are in agreement with plan for admission. Patient was discussed with admitting physician and bridge admission orders were placed. Further care will be managed by inpatient team. Dragon Disclaimer: Dragon Disclaimer: This electronic medical record was generated, in whole or in part, using a voice recognition dictation system. Departure Departure Impression: Primary Impression: Appendicitis Disposition: ADMITTED INPATIENT Condition: IMPROVED Referrals: NABILA DURAN MD (PCP) Justicifation of Admission Dx: Justifications for Admission: Justification of Admission Dx: Yes REUBEN KRUTZ MD May 11, 2020 14:57
[2020-05-11] MEDS ORDERED: MULT-735 PO (15:51)
[2020-05-11] MEDS ORDERED: FOLI0.8C PO (15:51)
--- NOTE | 2020-05-11 16:13 | PDOC ---
Infectious Disease Note Vital Sign Vital Signs Vital Signs Date Time Temp Pulse Resp B/P (MAP) Pulse Ox O2 Delivery O2 Flow Rate FiO2 05/11/20 14:20 99.1 101 22 131/62 (85) 96 Room Air 99.1 Labs Lab Laboratory Tests Test 05/11/20 08:10 05/11/20 08:36 05/11/20 11:35 05/11/20 12:08 White Blood Count 11.7 x10^3/uL (4.0-11.0) Red Blood Count 4.37 x10^6/uL (4.30-5.70) Hemoglobin 14.7 g/dL (13.0-17.5) Hematocrit 43.1 % (39.0-53.0) Mean Corpuscular Volume 99 fL (79-100) Mean Corpuscular Hemoglobin 34 pg (25-35) Mean Corpuscular Hemoglobin Concent 34 g/dL (31-37) Red Cell Distribution Width 13.5 % (11.5-14.5) Platelet Count 247 x10^3/uL (140-400) Neutrophils (%) (Auto) 92 % (31-73) Lymphocytes (%) (Auto) 5 % (24-48) Monocytes (%) (Auto) 2 % (0-9) Eosinophils (%) (Auto) 0 % (0-3) Basophils (%) (Auto) 0 % (0-3) Neutrophils # (Auto) 10.8 x10^3/uL (1.8-7.7) Lymphocytes # (Auto) 0.6 x10^3/uL (1.0-4.8) Monocytes # (Auto) 0.3 x10^3/uL (0.0-1.1) Eosinophils # (Auto) 0.0 x10^3/uL (0.0-0.7) Basophils # (Auto) 0.0 x10^3/uL (0.0-0.2) Prothrombin Time 13.9 SEC (11.7-14.0) Prothromb Time International Ratio 1.1 (0.8-1.1) Sodium Level 133 mmol/L (136-145) Potassium Level 3.8 mmol/L (3.5-5.1) Chloride Level 95 mmol/L (98-107) Carbon Dioxide Level 29 mmol/L (21-32) Anion Gap 9 (6-14) Blood Urea Nitrogen 15 mg/dL (8-26) Creatinine 1.3 mg/dL (0.7-1.3) Estimated GFR (Cockcroft-Gault) 54.7 BUN/Creatinine Ratio 12 (6-20) Glucose Level 156 mg/dL (70-99) Lactic Acid Level 3.1 mmol/L (0.4-2.0) 1.3 mmol/L (0.4-2.0) Calcium Level 9.2 mg/dL (8.5-10.1) Total Bilirubin 1.1 mg/dL (0.2-1.0) Aspartate Amino Transf (AST/SGOT) 31 U/L (15-37) Alanine Aminotransferase (ALT/SGPT) 33 U/L (16-63) Alkaline Phosphatase 128 U/L (46-116) Lactate Dehydrogenase 207 U/L (85-227) C-Reactive Protein, Quantitative 1.2 mg/L (0-3.3) Total Protein 7.4 g/dL (6.4-8.2) Albumin 4.0 g/dL (3.4-5.0) Albumin/Globulin Ratio 1.2 (1.0-1.7) Triglycerides Level 64 mg/dL (0-150) Cholesterol Level 168 mg/dL (0-200) LDL Cholesterol, Calculated 56 mg/dL (0-100) VLDL Cholesterol, Calculated 13 mg/dL (0-40) Non-HDL Cholesterol Calculated 69 mg/dL (0-129) HDL Cholesterol 99 mg/dL (40-60) Cholesterol/HDL Ratio 1.7 Lipase 100 U/L (73-393) Thyroid Stimulating Hormone (TSH) 0.500 uIU/mL (0.358-3.74) Urine Collection Type Void Urine Color Yellow Urine Clarity Clear Urine pH 6.5 (<5.0-8.0) Urine Specific [place] 1.015 (1.000-1.030) Urine Protein Negative mg/dL (NEG-TRACE) Urine Glucose (UA) Negative mg/dL (NEG) Urine Ketones (Stick) Negative mg/dL (NEG) Urine Blood Negative (NEG) Urine Nitrite Negative (NEG) Urine Bilirubin Negative (NEG) Urine Urobilinogen Dipstick 1.0 mg/dL (0.2 mg/dL) Urine Leukocyte Esterase Negative (NEG) Urine RBC 0 /HPF (0-2) Urine WBC Occ /HPF (0-4) Urine Squamous Epithelial Cells Occ /LPF Urine Bacteria Few /HPF (0-FEW) Urine Hyaline Casts Occasional /HPF SARS-CoV-2 Antigen (Rapid) Negative (NEGATIVE) Objective Assessment pt seen, consult dictated Plan Plan of Care / YUNIOR PAK MD May 11, 2020 16:13
[2020-05-11 19:40] VITALS: BP 118/81
[2020-05-11] MEDS ORDERED: NON FORMULARY ITEM (Melatonin 10 MG) PO SCH (21:00)
--- NOTE | 2020-05-11 21:36 | CONS ---
DATE OF CONSULTATION: 05/11/2020 REQUESTING PHYSICIAN: Dr. Pride. REASON FOR CONSULTATION: Acute appendicitis. HISTORY OF PRESENT ILLNESS: This is a 69-year-old gentleman with a history of gastric bypass, hypertension and AFib, who presented with sudden onset of acute abdominal pain. The patient says he just could not handle the pain that he never had before. He thought it was constipation. Pain started hurting the back, he could not get up, hence he decided to come in. He did have some nausea. The patient did not have fever at home, but he did have 102.[address] fever here[address] The patient's CT showed he has acute appendicitis. Lactic acid 3.1. Urinalysis unremarkable and COVID negative. The patient is on Eliquis. Hence, the surgery is planned for tomorrow morning. The patient is sitting up comfortable. Denies any complaints right now. The patient is receiving Zosyn. PAST MEDICAL HISTORY: Positive for hypertension, hyperlipidemia, atrial fibrillation, has had gastric bypass with a bunch of weight loss. SOCIAL HISTORY: Negative for smoking. Occasional alcohol use, no drug use. ALLERGIES: LISTED ALLERGIC TO LISINOPRIL. CURRENT MEDICATIONS: Reviewed. REVIEW OF SYSTEMS: As per HPI, all other systems reviewed are negative. PHYSICAL EXAMINATION: GENERAL: Alert and oriented gentleman, not in distress. VITAL SIGNS: Stable with T-max 102.2, pulse 104, respirations 24, blood pressure 122/67. HEENT: NAD. NECK: Supple, no JVP, no lymphadenopathy. LUNGS: Clear. HEART: S1, S2 regular. ABDOMEN: Soft. Mild tenderness in the right lower quadrant present. No rebound or guarding. EXTREMITIES: No edema, cyanosis. SKIN: Unremarkable. NEUROLOGIC: The patient is alert, awake and appropriate. No focal neurologic deficit. LABORATORY DATA: White count is 11.7. Lactic acid 3.1. Urinalysis unremarkable. BUN and creatinine is normal. Blood culture has been done. IMAGING STUDIES: CT scan of the abdomen and pelvis showed acute appendicitis. IMPRESSION: 1. Acute appendicitis. 2. Lactic acidosis. 3. Fever. 4. Leukocytosis. 5. Hypertension. 6. Hyperlipidemia. 7. Status post gastric bypass with weight loss. RECOMMENDATIONS: Continue Zosyn. Continue supportive care. Surgery has been planned for tomorrow. Discussed with the patient and the patient's at the bedside. Thank you very much, Dr. Pride, for giving me to participate in this patient's care. YUNIOR PAK MD DR: IGNACOI/roger JOB#: [id number] / [id number]
[2020-05-11] MEDS: MAGNESIUM OXIDE 400 MG TABLET PO SCH (21:44)
[2020-05-11] MEDS: ATORVASTATIN CALCIUM 40 MG TABLET. PO SCH (21:44)
[2020-05-11 23:10] VITALS: BP 131/76
[2020-05-12] VITALS (17 sets, daily range): BP systolic 106–137; BP diastolic 56–87
[2020-05-12] MEDS ORDERED: fentaNYL PF VIAL 100 MCG/2 ML VIAL IV PRN (07:00)
[2020-05-12] MEDS ORDERED: PROCHLORPERAZINE 10 MG/2 ML VIAL. IV PRN (07:00)
[2020-05-12] MEDS ORDERED: MORPHINE SULFATE 2 MG/ML VIAL. IV PRN (07:00)
[2020-05-12] MEDS ORDERED: HYDROmorphone 2 MG/ML VIAL IV PRN (07:00)
[2020-05-12] MEDS ORDERED: ONDANSETRON PF 4 MG/2 ML VIAL. IV PRN (07:00)
[2020-05-12] MEDS ORDERED: IV RINGERS,LACTATED 1000ML 1,000 ML IV SCH (07:00)
[2020-05-12] MEDS ORDERED: LIDOCAINE 1% PF 2 ML VIAL. ID PRN (07:00)
[2020-05-12] MEDS ORDERED: ONDANSETRON PF 4 MG/2 ML VIAL. ONE (07:11)
[2020-05-12] MEDS ORDERED: PROPOFOL 10 MG/ML (20ML) VIAL. IV ONE ×3 (07:11→09:17)
[2020-05-12] MEDS ORDERED: LIDOCAINE 2% PF 5 ML VIAL. ONE (07:11)
[2020-05-12] MEDS ORDERED: SUCCINYLCHOLINE 200 MG/10 ML VIAL. ONE (07:11)
[2020-05-12] MEDS ORDERED: ROCURONIUM 50 MG/5 ML VIAL. ONE (07:11)
[2020-05-12] MEDS ORDERED: DEXAMETHASONE SOD PHOS 4 MG/ML VIAL ONE (07:11)
[2020-05-12] MEDS ORDERED: BUPIVACAINE-EPI 0.5%-1:200000 MPF 30 ML VIAL. ONE (07:14)
[2020-05-12] MEDS ORDERED: fentaNYL PF VIAL 100 MCG/2 ML VIAL ONE ×3 (07:14→09:14)
[2020-05-12] MEDS ORDERED: PIPERACILLIN/TAZOBACTAM 3.375 GM in IV NORMAL SALINE 50ML 50 ML IV STA (07:29)
--- NOTE | 2020-05-12 08:00 | PDOC ---
[facility] [facility] PROGRESS NOTE Date of Service DOS: DATE: 05/12/20 TIME: 07:57 Chief Complaint Chief Complaint A/P: Acute appendicitis hypertension hyperlipidemia atrial fibrillation S/p gastric bypass S/p CABG History of Present Illness History of Present Illness Mr Real is a 69 yo M w/ PMHx gastric bypass, hypertension and AFib who presented with sudden onset of acute abdominal pain. Fever of 102.[address] revealed acute appendicitis. Lactic acid 3.1. Urinalysis unremarkable and COVID negative. The patient is on pradaxa for afib. Consults from cardiology, ID, general surgery. Admitted for further care. Status post laparoscopic appendectomy this morning. Afebrile. He is asking for water. Says he is uncomfortable but pain is reasonably controlled. No shortne ss of breath or chest pain no lower extremity swelling. Vitals/I&O Vitals/I&O: Vital Signs Date Time Temp Pulse Resp B/P (MAP) Pulse Ox O2 Delivery O2 Flow Rate FiO2 05/12/20 06:51 98.1 102 20 129/61 96 Room Air 98.1 I & O 05/11/20 05/11/20 05/12/20 15:00 23:00 07:00 Intake Total 50 ml 0 ml 0 ml Output Total 300 ml Balance 50 ml -300 ml 0 ml Physical Exam General: Alert, Oriented X3, Cooperative, No acute distress Heart: Other (IRRR- tele AFIB rate near 90) Abdomen: Other (diffused tenderness ) Extremities: No edema, Normal pulses Skin: No significant lesion Labs Labs: Laboratory Tests Test 05/11/20 08:10 05/11/20 08:36 05/11/20 11:35 05/11/20 12:08 White Blood Count 11.7 x10^3/uL (4.0-11.0) Red Blood Count 4.37 x10^6/uL (4.30-5.70) Hemoglobin 14.7 g/dL (13.0-17.5) Hematocrit 43.1 % (39.0-53.0) Mean Corpuscular Volume 99 fL (79-100) Mean Corpuscular Hemoglobin 34 pg (25-35) Mean Corpuscular Hemoglobin Concent 34 g/dL (31-37) Red Cell Distribution Width 13.5 % (11.5-14.5) Platelet Count 247 x10^3/uL (140-400) Neutrophils (%) (Auto) 92 % (31-73) Lymphocytes (%) (Auto) 5 % (24-48) Monocytes (%) (Auto) 2 % (0-9) Eosinophils (%) (Auto) 0 % (0-3) Basophils (%) (Auto) 0 % (0-3) Neutrophils # (Auto) 10.8 x10^3/uL (1.8-7.7) Lymphocytes # (Auto) 0.6 x10^3/uL (1.0-4.8) Monocytes # (Auto) 0.3 x10^3/uL (0.0-1.1) Eosinophils # (Auto) 0.0 x10^3/uL (0.0-0.7) Basophils # (Auto) 0.0 x10^3/uL (0.0-0.2) Prothrombin Time 13.9 SEC (11.7-14.0) Prothromb Time International Ratio 1.1 (0.8-1.1) Sodium Level 133 mmol/L (136-145) Potassium Level 3.8 mmol/L (3.5-5.1) Chloride Level 95 mmol/L (98-107) Carbon Dioxide Level 29 mmol/L (21-32) Anion Gap 9 (6-14) Blood Urea Nitrogen 15 mg/dL (8-26) Creatinine 1.3 mg/dL (0.7-1.3) Estimated GFR (Cockcroft-Gault) 54.7 BUN/Creatinine Ratio 12 (6-20) Glucose Level 156 mg/dL (70-99) Lactic Acid Level 3.1 mmol/L (0.4-2.0) 1.3 mmol/L (0.4-2.0) Calcium Level 9.2 mg/dL (8.5-10.1) Total Bilirubin 1.1 mg/dL (0.2-1.0) Aspartate Amino Transf (AST/SGOT) 31 U/L (15-37) Alanine Aminotransferase (ALT/SGPT) 33 U/L (16-63) Alkaline Phosphatase 128 U/L (46-116) Lactate Dehydrogenase 207 U/L (85-227) C-Reactive Protein, Quantitative 1.2 mg/L (0-3.3) Total Protein 7.4 g/dL (6.4-8.2) Albumin 4.0 g/dL (3.4-5.0) Albumin/Globulin Ratio 1.2 (1.0-1.7) Triglycerides Level 64 mg/dL (0-150) Cholesterol Level 168 mg/dL (0-200) LDL Cholesterol, Calculated 56 mg/dL (0-100) VLDL Cholesterol, Calculated 13 mg/dL (0-40) Non-HDL Cholesterol Calculated 69 mg/dL (0-129) HDL Cholesterol 99 mg/dL (40-60) Cholesterol/HDL Ratio 1.7 Lipase 100 U/L (73-393) Thyroid Stimulating Hormone (TSH) 0.500 uIU/mL (0.358-3.74) Urine Collection Type Void Urine Color Yellow Urine Clarity Clear Urine pH 6.5 (<5.0-8.0) Urine Specific [place] 1.015 (1.000-1.030) Urine Protein Negative mg/dL (NEG-TRACE) Urine Glucose (UA) Negative mg/dL (NEG) Urine Ketones (Stick) Negative mg/dL (NEG) Urine Blood Negative (NEG) Urine Nitrite Negative (NEG) Urine Bilirubin Negative (NEG) Urine Urobilinogen Dipstick 1.0 mg/dL (0.2 mg/dL) Urine Leukocyte Esterase Negative (NEG) Urine RBC 0 /HPF (0-2) Urine WBC Occ /HPF (0-4) Urine Squamous Epithelial Cells Occ /LPF Urine Bacteria Few /HPF (0-FEW) Urine Hyaline Casts Occasional /HPF SARS-CoV-2 Antigen (Rapid) Negative (NEGATIVE) Assessment and Plan Assessmemt and Plan Problems Medical Problems: (1) Appendicitis Status: Acute Comment Review of Relevant I have reviewed the following items jose (where applicable) has been applied. Medications: Current Medications Medications (Trade) Dose Ordered Sig/Rai Route PRN Reason Start Time Stop Time Status Last Admin Dose Admin Acetaminophen (Tylenol) 650 mg 1X ONCE PO 05/11/20 08:15 05/11/20 08:16 DC 05/11/20 08:26 Piperacillin Sod/ Tazobactam Sod 3.375 gm/Sodium Chloride 50 ml @ 100 mls/hr 1X ONCE IV 05/11/20 08:15 05/11/20 08:44 DC 05/11/20 08:27 Iohexol (Omnipaque 240 Mg/ml) 30 ml 1X ONCE PO 05/11/20 09:15 05/11/20 09:16 DC 05/11/20 09:40 Iohexol (Omnipaque 300 Mg/ml) 60 ml 1X ONCE IV 05/11/20 09:15 05/11/20 09:16 DC 05/11/20 09:15 Morphine Sulfate (Morphine Sulfate) 5 mg 1X ONCE IV 05/11/20 11:15 05/11/20 11:16 DC 05/11/20 11:28 Hydromorphone HCl (Dilaudid) 0.6 mg PRN Q3HRS PRN IVP MOD/SEVERE PAIN (3rd CHOICE) 05/11/20 14:45 05/11/20 21:51 Atorvastatin Calcium (Lipitor) 40 mg QHS PO 05/11/20 21:00 05/11/20 21:44 Magnesium Oxide (Magnesium Oxide) 400 mg BID PO 05/11/20 21:00 05/11/20 21:44 Ringer's Solution 1,000 ml @ 30 mls/hr Q24H IV 05/12/20 07:00 05/12/20 18:59 05/12/20 07:33 Justifications for Admission Other Justification SAULO LIN MD May 12, 2020 08:00
--- NOTE | 2020-05-12 08:25 | PDOC ---
Infectious Disease Note Subjective Subjective Patient had surgery this morning feeling good ROS ROS No nausea vomiting diarrhea chest pain shortness of breath abdominal pain Vital Sign Vital Signs Vital Signs Date Time Temp Pulse Resp B/P (MAP) Pulse Ox O2 Delivery O2 Flow Rate FiO2 05/12/20 06:51 98.1 102 20 129/61 96 Room Air 98.1 Physical Exam PHYSICAL EXAM GENERAL: Alert and oriented gentleman, not in distress. VITAL SIGNS: Stable HEENT: NAD. NECK: Supple, no JVP, no lymphadenopathy. LUNGS: Clear. HEART: S1, S2 regular. ABDOMEN: Soft. Mild tenderness in the right lower quadrant present. No rebound or guarding. Postsurgical dressing not open EXTREMITIES: No edema, cyanosis. SKIN: Unremarkable. NEUROLOGIC: The patient is alert, awake and appropriate. No focal neurologic deficit. Labs Lab Laboratory Tests Test 05/11/20 08:36 05/11/20 11:35 05/11/20 12:08 Urine Collection Type Void Urine Color Yellow Urine Clarity Clear Urine pH 6.5 (<5.0-8.0) Urine Specific [place] 1.015 (1.000-1.030) Urine Protein Negative mg/dL (NEG-TRACE) Urine Glucose (UA) Negative mg/dL (NEG) Urine Ketones (Stick) Negative mg/dL (NEG) Urine Blood Negative (NEG) Urine Nitrite Negative (NEG) Urine Bilirubin Negative (NEG) Urine Urobilinogen Dipstick 1.0 mg/dL (0.2 mg/dL) Urine Leukocyte Esterase Negative (NEG) Urine RBC 0 /HPF (0-2) Urine WBC Occ /HPF (0-4) Urine Squamous Epithelial Cells Occ /LPF Urine Bacteria Few /HPF (0-FEW) Urine Hyaline Casts Occasional /HPF SARS-CoV-2 Antigen (Rapid) Negative (NEGATIVE) Lactic Acid Level 1.3 mmol/L (0.4-2.0) Micro Microbiology 05/11/20 Blood Culture - Preliminary, Resulted NO GROWTH AFTER 1 DAY Objective Assessment IMPRESSION: 1. Acute appendicitis. Post appendicectomy 2. Lactic acidosis. 3. Fever. 4. Leukocytosis. 5. Hypertension. 6. Hyperlipidemia. 7. Status post gastric bypass with weight loss. Plan Plan of Care Continue [facility] Supportive care YUNIOR PAK MD May 12, 2020 08:25
[2020-05-12] MEDS ORDERED: SEVOFLURANE 61 TO 120 MINUTES. IH ONE (08:33)
[2020-05-12] MEDS ORDERED: NEOSTIGMINE METHYLSULFATE 5 MG/5 ML SYRINGE. ONE (08:46)
[2020-05-12] MEDS ORDERED: GLYCOPYRROLATE 1 MG/5 ML VIAL. ONE (08:46)
--- NOTE | 2020-05-12 08:56 | PDOC4 ---
Operative Note Operative Note Preoperative Diagnosis: Acute Appendicitis Postoperative Diagnosis: Same Procedure: Laparoscopic appendectomy Surgeon: Saud Anesthesia: Gen. EBL: 10 mL Specimen: Appendix to pathology Drains: None Complications: None Indication: The patient is a 69-year-old male who reported to the emergency department with abdominal pain. The evaluation is consistent with acute appendicitis. The patient was offered surgical treatment with a laparoscopic appendectomy. The risks of surgery were discussed which include bleeding, infection, visceral injury, pain, anesthetic risk, potential need for additional surgery or procedure. The patient understands and would like to proceed. Description: The patient was taken to the operating room and placed supine on the operating table. Gen. anesthesia was performed. The abdomen was prepped with ChloraPrep and draped in a standard surgical manner. A right upper quadrant incision was made through which a visualized 5 mm trocar was inserted and a pneumoperitoneum was created. The laparoscope was introduced. Inspection showed significant adhesions due to prior surgery. The right abdomen however was free and we were able to proceed. In the right lower quadrant a 5 mm trocar was inserted. In the upper mid abdomen a 12 mm trocar was inserted. The cecum and appendix were located in the right upper quadrant. The appendix was identified and appeared inflamed consistent with acute appendicitis. There was no clear evidence of perforation or periappendiceal abscess. The mesoappendix was bluntly from the appendix. The mesoappendix was controlled using several clips and it was divided. The appendix was then amputated off the cecum using an Endo CECILIA 45 stapling device. The appendix was then placed in an endoscopic bag and extracted at the superior incision site. The fascia there was closed with 0 Vicryl and infiltrated with half percent Marcaine with epinephrine. The staple line appeared well intact and hemostasis was good. No other abnormalities were identified grossly. The remaining ports were removed and the pneumoperitoneum was relieved. The skin at all incision sites was closed with 4-0 Monocryl. Steri-Strips and dressings were applied. The patient tolerated the procedure well and was sent to the recovery room in stable condition. At the end of the case all counts were correct. PACO CHARLES MD May 12, 2020 08:56
[2020-05-12] MEDS ORDERED: HYDROcodone/APAP 5/325MG 1 TAB TABLET PO PRN ×2 (09:00→09:15)
[2020-05-12] MEDS ORDERED: AMIODARONE HCL 200 MG TABLET. PO SCH (09:00)
[2020-05-12] MEDS ORDERED: PROCHLORPERAZINE 10 MG/2 ML VIAL. ONE (09:14)
[2020-05-12] MEDS: fentaNYL PF VIAL 100 MCG/2 ML VIAL IV PRN ×2 (09:20→09:36)
[2020-05-12] MEDS: MAGNESIUM OXIDE 400 MG TABLET PO SCH ×2 (10:19→21:55)
[2020-05-12] MEDS: PIPERACILLIN/TAZOBACTAM 3.375 GM in IV NORMAL SALINE 50ML 50 ML IV SCH ×3 (10:19→18:01)
[2020-05-12] MEDS: MULTIVITAMIN with MINERAL TABLET. PO SCH (10:19)
[2020-05-12] MEDS: POTASSIUM CHLORIDE 10 MEQ TABLET.ER. PO SCH (10:19)
[2020-05-12] MEDS: CHOLECALCIFEROL (VITAMIN D3) 1,000 UNIT TABLET PO SCH (10:19)
[2020-05-12] MEDS: FUROSEMIDE 40 MG TABLET. PO SCH (10:20)
[2020-05-12] MEDS: FOLIC ACID 1 MG TABLET. PO SCH (10:20)
[2020-05-12] MEDS: CYANOCOBALAMIN (VITAMIN B-12) 1,000 MCG TABLET. PO SCH (10:20)
--- NOTE | 2020-05-12 10:48 | PDOC ---
CARDIO Progress Notes Date and Time Date of Service 05/12/20 Time of Evaluation 1040 Subjective Subjective: No Chest Pain, No shortness of breath, No Palpitations Vitals Vitals Vital Signs Date Time Temp Pulse Resp B/P (MAP) Pulse Ox O2 Delivery O2 Flow Rate FiO2 05/12/20 10:10 16 99 Room Air 05/12/20 09:36 10.0 05/12/20 09:35 99.1 104 135/74 99.1 Weight Weight [ ] Input and Output Intake and Output Intake and Output 05/12/20 07:00 Intake Total 50 ml Output Total 300 ml Balance -250 ml Intake Oral 0 ml IV Total 50 ml Output Urine Total 300 ml # Voids 2 Laboratory Labs Laboratory Tests Test 05/11/20 11:35 05/11/20 12:08 SARS-CoV-2 Antigen (Rapid) Negative (NEGATIVE) Lactic Acid Level 1.3 mmol/L (0.4-2.0) Microbiology Micro Microbiology 05/11/20 Blood Culture - Preliminary, Resulted NO GROWTH AFTER 1 DAY Physical Exam HEENT: Neck Supple W Full Motion Chest: Symmetric LUNGS: Clear to Auscultation Heart: irregularly irregular Abdomen: Other (tender post-operatively ) Extremities: No Edema Neurology: alert, oriented, follow commands Assessment Assessment 1. Abdominal pain; CT with acute appendicitis. S/p lap appy today 2. Leukocytosis, lactic acidosis, fevers 3. Permanent AFIB with RVR; rate mostly controlled, but intermittently elevated. 4. CAD s/p CABG 2001; clinically stable. Recent stress test without evidence of ischemia. 5. Chronic systolic CHF; clinically compensated 6. ICM; Echo with LVEF 35%. 7. Hypertension; controlled 8. Hyperlipidemia; statin 9. Diabetes,II Recommendations Will add low-dose metoprolol for rate control. Monitor for bradycardia Resume Pradaxa when okay with surgical team . HF optimization with Lasix, ARB Will defer potential for AICD placement to primary regulated program manager, Dr. Hummel. Supportive care Justicifation of Admission Dx: Justifications for Admission: Justification of Admission Dx: Yes NKECHI ROJASILY NENO May 12, 2020 10:48
--- NOTE | 2020-05-12 11:05 | NUR ---
SS following for discharge planning. SS reviewed pt chart and discussed with pt RN. Pt is from home with spouse and is currently on room air. Pt on IV Zosyn. Pt had surgery today for appendectomy. SS will continue to follow for discharge planning.
--- NOTE | 2020-05-12 12:43 | CARD ---
MR#: [id number] Date of Study: 05/11/2020 Ordering Physician: HARVINDER ROJAS, Referring Physician: HARVINDER ROJAS, Tech: Elena Springer APPROVED REPORT EXAM: Two-dimensional and M-mode echocardiogram with Doppler and color Doppler. Other Information Quality : FairHR: 100bpm INDICATION Atrial Fibrillation Cardiac Disease: CAD Congestive Heart Failure 2D DIMENSIONS RVDd4.1 (2.9-3.5cm)Left Atrium(2D)4.1 (1.6-4.0cm) IVSd1.1 (0.7-1.1cm)Aortic Root(2D)3.9 (2.0-3.7cm) LVDd5.6 (3.9-5.9cm)LVOT Diameter2.0 (1.8-2.4cm) PWd1.1 (0.7-1.1cm)LVDs4.0 (2.5-4.0cm) FS (%) 28.7 %SV83.7 ml LVEF(%)54.6 (>50%) Aortic Valve AoV Peak Igl.113.7cm/sAoV VTI21.8cm AO Peak GR.5.2mmHgLVOT Peak Gil.88.2cm/s LVOT VTI 16.94cmAO Mean GR.3mmHg Mitral Valve MV E Drogfqxg74.1cm/sMV DECEL [id number] MV A Uejilpup87.8cm/sMV [id number] E/A Ratio1.6MVA (PHT)4.33cm2 TDI E/Lateral E'6.6E/Medial E'9.4 Pulmonary Valve PV Peak Lxvpmlev31.7cm/sPV Peak Grad.3mmHg Tricuspid Valve TR P. Uesjwqld664fv/sRAP [id number] TR Peak Gr.46onPdLBBI53pxOj LEFT VENTRICLE The left ventricle is normal size. There is normal left ventricular wall thickness. Severe hypokinesi s of mid to distal anterior, anteroseptal caruso and apical wall. The ejection fraction is estimated a t 35%. Transmitral Doppler flow pattern is Grade II-pseudonormal filling dynamics. RIGHT VENTRICLE The right ventricle is normal size. There is normal right ventricular wall thickness. The right ventr icular systolic function is normal. ATRIA The left atrium is mildly dilated. The right atrium is mildly dilated. The interatrial septum is inta ct with no evidence for an atrial septal defect or patent foramen ovale as noted on 2-D or Doppler im aging. AORTIC VALVE The aortic valve is normal in structure and function. Doppler and Color Flow revealed no significant aortic regurgitation. There is no significant aortic valvular stenosis. Calculated aortic valve area is cm2 with maximum pressure gradient of 6 mmHg and mean pressure gradient of 3 mmHg. MITRAL VALVE The mitral valve is normal in structure and function. There is no evidence of mitral valve prolapse. There is no mitral valve stenosis. Doppler and Color-flow revealed trace mitral regurgitation. TRICUSPID VALVE The tricuspid valve is normal in structure and function. Doppler and Color Flow revealed trace tricus pid regurgitation with an estimated PAP of 32 mmHg. There is no tricuspid valve stenosis. PULMONIC VALVE The pulmonic valve is not well visualized. Doppler and Color Flow revealed no pulmonic valvular regur gitation. GREAT VESSELS The aortic root is mildly enlarged measuring 3.81 cm. The IVC was not visualized. PERICARDIAL EFFUSION There is no evidence of significant pericardial effusion. Critical Notification Critical Value: No <Conclusion> Severe hypokinesis of mid to distal anterior, anteroseptal caruso and apical wall. The ejection fraction is estimated at 35%. Transmitral Doppler flow pattern is Grade II-pseudonormal filling dynamics. Trace mitral regurgitation. Trace tricuspid regurgitation with an estimated PAP of 32 mmHg. There is no evidence of significant pericardial effusion. Signed by : Mario Romano, Electronically Approved : 05/12/2020 12:43:28
[2020-05-12] MEDS: METOPROLOL TART IMMED RELEASE 25 MG TABLET. PO SCH (21:56)
[2020-05-12] MEDS: LACTOBACILLUS RHAMNOSUS GG 1 CAPSULE. PO SCH (21:57)
[2020-05-12] MEDS: ATORVASTATIN CALCIUM 40 MG TABLET. PO SCH (21:57)
[2020-05-13 03:45] VITALS: BP 143/90
[2020-05-13 07:00] VITALS: BP 114/83
[2020-05-13] MEDS: PIPERACILLIN/TAZOBACTAM 3.375 GM in IV NORMAL SALINE 50ML 50 ML IV SCH ×2 (07:20→07:21)
--- NOTE | 2020-05-13 08:04 | PDOC ---
[employer] PROGRESS NOTE Date of Service DOS: DATE: 05/13/20 TIME: 08:03 Chief Complaint Chief Complaint A/P: Acute appendicitis hypertension hyperlipidemia atrial fibrillation S/p gastric bypass S/p CABG History of Present Illness History of Present Illness Mr Real is a 69 yo M w/ PMHx gastric bypass, hypertension and AFib who presented with sudden onset of acute abdominal pain. Fever of 102.[address] revealed acute appendicitis. Lactic acid 3.1. Urinalysis unremarkable and COVID negative. The patient is on pradaxa for afib. Consults from cardiology, ID, general surgery. Admitted for further care. 05/12: Status post laparoscopic appendectomy this morning. Afebrile. He is asking for water. Afebrile. Says he is uncomfortable but pain is reasonably controlled. No shortness of breath or chest pain no lower extremity swelling. Vitals/I&O Vitals/I&O: Vital Signs Date Time Temp Pulse Resp B/P (MAP) Pulse Ox O2 Delivery O2 Flow Rate FiO2 05/13/20 03:45 98.7 83 16 143/90 (107) 97 Room Air 98.7 05/12/20 09:36 10.0 I & O 05/12/20 05/12/20 05/13/20 15:00 23:00 07:00 Intake Total 980 ml 1030 ml 200 ml Output Total 210 ml 450 ml 0 ml Balance 770 ml 580 ml 200 ml Physical Exam Physical Exam: GENERAL: Alert and oriented gentleman, not in distress. VITAL SIGNS: Stable HEENT: NAD. NECK: Supple, no JVP, no lymphadenopathy. LUNGS: Clear. HEART: S1, S2 regular. ABDOMEN: Soft. Mild tenderness in the right lower quadrant present. No rebound or guarding. Postsurgical dressing not open EXTREMITIES: No edema, cyanosis. SKIN: Unremarkable. NEUROLOGIC: The patient is alert, awake and appropriate. No focal neurologic deficit. General: Alert, Oriented X3, Cooperative, No acute distress Heart: Other (IRRR- tele AFIB rate near 90) Abdomen: Other (diffused tenderness ) Extremities: No edema, Normal pulses Skin: No significant lesion Assessment and Plan Assessmemt and Plan Problems Medical Problems: (1) Appendicitis Status: Acute Comment Review of Relevant I have reviewed the following items jose (where applicable) has been applied. Medications: Current Medications Medications (Trade) Dose Ordered Sig/Rai Route PRN Reason Start Time Stop Time Status Last Admin Dose Admin Furosemide (Lasix) 40 mg DAILY PO 05/12/20 09:00 05/12/20 10:20 Vitamin D (Vitamin D3) 1,000 unit DAILY PO 05/12/20 09:00 05/12/20 10:19 Cyanocobalamin (Vitamin B-12) 250 mcg DAILY PO 05/12/20 09:00 05/12/20 10:20 Folic Acid (Folic Acid) 1 mg DAILY PO 05/12/20 09:00 05/12/20 10:20 Multivitamins (Thera M Plus) 1 tab DAILY PO 05/12/20 09:00 05/12/20 10:19 Piperacillin Sod/ Tazobactam Sod 3.375 gm/Sodium Chloride 50 ml @ 100 mls/hr Q6HRS IV 05/12/20 09:00 05/13/20 07:21 Acetaminophen/ Hydrocodone Bitart (Lortab 5/325) 1 tab PRN Q4HRS PRN PO MODERATE PAIN 05/12/20 09:00 05/12/20 21:56 Metoprolol Tartrate (Lopressor) 12.5 mg BID PO 05/12/20 21:00 05/12/20 21:56 Lactobacillus Rhamnosus (Culturelle) 1 cap BID PO 05/12/20 21:00 05/12/20 21:57 Justifications for Admission Other Justification SAULO LIN MD May 13, 2020 08:04
--- NOTE | 2020-05-13 08:22 | PDOC ---
Infectious Disease Note Subjective Subjective feeling good, says ready to go home ROS ROS no n/v/d/abd pain Vital Sign Vital Signs Vital Signs Date Time Temp Pulse Resp B/P (MAP) Pulse Ox O2 Delivery O2 Flow Rate FiO2 05/13/20 03:45 98.7 83 16 143/90 (107) 97 Room Air 98.7 05/12/20 09:36 10.0 Physical Exam PHYSICAL EXAM GENERAL: Alert and oriented gentleman, not in distress. VITAL SIGNS: Stable HEENT: NAD. NECK: Supple, no JVP, no lymphadenopathy. LUNGS: Clear. HEART: S1, S2 regular. ABDOMEN: Soft. Mild tenderness in the right lower quadrant present. No rebound or guarding. Postsurgical dressing not open EXTREMITIES: No edema, cyanosis. SKIN: Unremarkable. NEUROLOGIC: The patient is alert, awake and appropriate. No focal neurologic deficit. Labs Micro Microbiology 05/11/20 Blood Culture - Preliminary, Resulted NO GROWTH AFTER 1 DAY Objective Assessment IMPRESSION: 1. Acute appendicitis. Post appendicectomy 2. Lactic acidosis. 3. Fever. 4. Leukocytosis. 5. Hypertension. 6. Hyperlipidemia. 7. Status post gastric bypass with weight loss. Plan Plan of Care Ashlynsyn,, change to po augmentin ok to d/c Supportive care YUNIOR PAK MD May 13, 2020 08:22
[2020-05-13] MEDS: LACTOBACILLUS RHAMNOSUS GG 1 CAPSULE. PO SCH (08:44)
[2020-05-13] MEDS: FUROSEMIDE 40 MG TABLET. PO SCH (08:44)
[2020-05-13] MEDS: CHOLECALCIFEROL (VITAMIN D3) 1,000 UNIT TABLET PO SCH (08:45)
[2020-05-13] MEDS: METOPROLOL TART IMMED RELEASE 25 MG TABLET. PO SCH (08:45)
[2020-05-13] MEDS: POTASSIUM CHLORIDE 10 MEQ TABLET.ER. PO SCH (08:45)
[2020-05-13] MEDS: CYANOCOBALAMIN (VITAMIN B-12) 1,000 MCG TABLET. PO SCH (08:45)
[2020-05-13] MEDS: MAGNESIUM OXIDE 400 MG TABLET PO SCH (08:45)
[2020-05-13] MEDS: FOLIC ACID 1 MG TABLET. PO SCH (08:45)
[2020-05-13] MEDS: MULTIVITAMIN with MINERAL TABLET. PO SCH (08:45)
[2020-05-13] MEDS ORDERED: AMOXICILLIN/K CLAV 875/125MG TABLET. PO SCH (09:00)
[2020-05-13 09:07] LABS: HEMOGLOBIN 13.2 g/dL (13.0-17.5); RED BLOOD COUNT 3.95 x10^6/uL (4.30-5.70); RED CELL DISTRIBUTION WIDTH 13.5 % (11.5-14.5); WHITE BLOOD COUNT 11.9 x10^3/uL (4.0-11.0)
[2020-05-13] MEDS ORDERED: AMOX1TAB11 PO (10:17)
[2020-05-13] MEDS ORDERED: METO-239 PO (10:17)
[2020-05-13] MEDS ORDERED: HYDR-2761 PO (10:17)
--- NOTE | 2020-05-13 10:32 | PDOC ---
SURGICAL PROGRESS NOTE DATE: 05/13/20 TIME: 10:28 Subjective feels well minimal pain tolerating diet ambulating Vital Signs Vital Signs Date Time Temp Pulse Resp B/P (MAP) Pulse Ox O2 Delivery O2 Flow Rate FiO2 05/13/20 08:45 83 143/90 05/13/20 07:00 98.7 21 97 Room Air 98.7 05/12/20 09:36 10.0 I&O Intake and Output 05/13/20 07:00 Intake Total 2210 ml Output Total 660 ml Balance 1550 ml Intake Oral 1410 ml IV Total 800 ml Output Urine Total 650 ml Estimated Blood Loss 10 ml General: Alert, Oriented X3, Cooperative Abdomen: Soft, Other (ND, lap dressings dry) Labs Laboratory Tests Test 05/11/20 11:35 05/11/20 12:08 05/13/20 08:40 Coronavirus (PCR) Not detected (Not Detected) SARS-CoV-2 Antigen (Rapid) Negative (NEGATIVE) Lactic Acid Level 1.3 mmol/L (0.4-2.0) White Blood Count 11.9 x10^3/uL (4.0-11.0) Red Blood Count 3.95 x10^6/uL (4.30-5.70) Hemoglobin 13.2 g/dL (13.0-17.5) Hematocrit 39.0 % (39.0-53.0) Mean Corpuscular Volume 99 fL (79-100) Mean Corpuscular Hemoglobin 34 pg (25-35) Mean Corpuscular Hemoglobin Concent 34 g/dL (31-37) Red Cell Distribution Width 13.5 % (11.5-14.5) Platelet Count 217 x10^3/uL (140-400) Laboratory Tests Test 05/13/20 08:40 White Blood Count 11.9 x10^3/uL (4.0-11.0) Red Blood Count 3.95 x10^6/uL (4.30-5.70) Hemoglobin 13.2 g/dL (13.0-17.5) Hematocrit 39.0 % (39.0-53.0) Mean Corpuscular Volume 99 fL (79-100) Mean Corpuscular Hemoglobin 34 pg (25-35) Mean Corpuscular Hemoglobin Concent 34 g/dL (31-37) Red Cell Distribution Width 13.5 % (11.5-14.5) Platelet Count 217 x10^3/uL (140-400) Problem List Problems Medical Problems: (1) Appendicitis Status: Acute Assessment/Plan s/p appy ok to dc home FU 2 weeks Justicifation of Admission Dx: Justifications for Admission: Justification of Admission Dx: Yes ORI HAJI APRN May 13, 2020 10:32
--- NOTE | 2020-05-13 10:32 | PDOC ---
CARDIO Progress Notes Date and Time Date of Service 05/13/20 Time of Evaluation 1020 Subjective Subjective: No Chest Pain, No shortness of breath, No Palpitations Vitals Vitals Vital Signs Date Time Temp Pulse Resp B/P (MAP) Pulse Ox O2 Delivery O2 Flow Rate FiO2 05/13/20 08:45 83 143/90 05/13/20 07:00 98.7 21 97 Room Air 98.7 05/12/20 09:36 10.0 Weight Weight [ ] Input and Output Intake and Output Intake and Output 05/13/20 07:00 Intake Total 2210 ml Output Total 660 ml Balance 1550 ml Intake Oral 1410 ml IV Total 800 ml Output Urine Total 650 ml Estimated Blood Loss 10 ml Laboratory Labs Laboratory Tests Test 05/13/20 08:40 White Blood Count 11.9 x10^3/uL (4.0-11.0) Red Blood Count 3.95 x10^6/uL (4.30-5.70) Hemoglobin 13.2 g/dL (13.0-17.5) Hematocrit 39.0 % (39.0-53.0) Mean Corpuscular Volume 99 fL (79-100) Mean Corpuscular Hemoglobin 34 pg (25-35) Mean Corpuscular Hemoglobin Concent 34 g/dL (31-37) Red Cell Distribution Width 13.5 % (11.5-14.5) Platelet Count 217 x10^3/uL (140-400) Microbiology Micro Microbiology 05/11/20 Blood Culture - Preliminary, Resulted NO GROWTH AFTER 2 DAYS Physical Exam HEENT: Neck Supple W Full Motion Chest: Symmetric LUNGS: Clear to Auscultation Heart: irregularly irregular (AFIB- mostly controlled. Intermittent RVR noted ) Abdomen: Other (tender post-operatively ) Extremities: No Edema Neurology: alert, oriented, follow commands Assessment Assessment 1. Abdominal pain; CT with acute appendicitis. S/p lap appy. POD #1 2. Leukocytosis, lactic acidosis, fevers 3. Permanent AFIB with RVR; rate mostly controlled intermittent RVR noted. Was previously on BB, but discontinued due to bradycardia. ? tachy/lizandro. No bradycardia noted on tele here. 4. CAD s/p CABG 2001; clinically stable. Recent stress test without evidence of ischemia. 5. Chronic systolic/diastolic CHF; clinically compensated 6. ICM; Echo with LVEF 35%. 7. Hypertension; controlled 8. Hyperlipidemia; statin 9. Diabetes,II Recommendations Continue low-dose metoprolol for rate control Patient to continue monitoring HR at home. To report any HR < 55 or > 120 or dizziness to primary front end technician, Dr. Hummel. Consider outpatient event monitor; will defer to primary front end technician Resume Pradaxa HF optimization with Lasix, ARB, BB Supportive care Okay to discharge from a CV standpoint Justicifation of Admission Dx: Justifications for Admission: Justification of Admission Dx: Yes HARVINDER ROJAS APRN May 13, 2020 10:32
[2020-05-13 11:00] VITALS: BP 135/84
--- NOTE | 2020-05-13 11:45 | PDOC3 ---
Discharge Summary Visit Information Date of Admission: May 11, 2020 Date of Discharge: May 13, 2020 Admitting Diagnosis: Appendicitis Final Diagnosis Problems Medical Problems: (1) Appendicitis Status: Acute Brief Hospital Course Allergies Allergies Coded Allergies Type Severity Reaction Last Updated Verified lisinopril Allergy Intermediate 03/22/17 Yes Vital Signs Vital Signs Date Time Temp Pulse Resp B/P (MAP) Pulse Ox O2 Delivery O2 Flow Rate FiO2 05/13/20 11:00 98.7 71 20 135/84 (101) 98 Room Air 98.7 05/12/20 09:36 10.0 Lab Results Laboratory Tests Test 05/11/20 12:08 05/13/20 08:40 Lactic Acid Level 1.3 mmol/L (0.4-2.0) White Blood Count 11.9 x10^3/uL (4.0-11.0) Red Blood Count 3.95 x10^6/uL (4.30-5.70) Hemoglobin 13.2 g/dL (13.0-17.5) Hematocrit 39.0 % (39.0-53.0) Mean Corpuscular Volume 99 fL (79-100) Mean Corpuscular Hemoglobin 34 pg (25-35) Mean Corpuscular Hemoglobin Concent 34 g/dL (31-37) Red Cell Distribution Width 13.5 % (11.5-14.5) Platelet Count 217 x10^3/uL (140-400) Laboratory Tests Test 05/13/20 08:40 White Blood Count 11.9 x10^3/uL (4.0-11.0) Red Blood Count 3.95 x10^6/uL (4.30-5.70) Hemoglobin 13.2 g/dL (13.0-17.5) Hematocrit 39.0 % (39.0-53.0) Mean Corpuscular Volume 99 fL (79-100) Mean Corpuscular Hemoglobin 34 pg (25-35) Mean Corpuscular Hemoglobin Concent 34 g/dL (31-37) Red Cell Distribution Width 13.5 % (11.5-14.5) Platelet Count 217 x10^3/uL (140-400) Brief Hospital Course Mr Real is a 69 yo M w/ PMHx gastric bypass, hypertension and AFib who presented with sudden onset of acute abdominal pain. Fever of 102.[address] revealed acute appendicitis. Lactic acid 3.1. Urinalysis unremarkable and COVID negative. The patient is on pradaxa for afib. Consults from cardiology, ID, general surgery. Admitted for further care. 05/12: Status post laparoscopic appendectomy this morning. Afebrile. He is asking for water. Afebrile. Says he is uncomfortable but pain is reasonably controlled. No shortness of breath or chest pain no lower extremity swelling. Echocardiogram: Severe hypokinesis of mid to distal anterior, anteroseptal caruso and apical wall. The ejection fraction is estimated at 35%. Transmitral Doppler flow pattern is Grade II-pseudonormal filling dynamics. Trace mitral regurgitation. Trace tricuspid regurgitation with an estimated PAP of 32 mmHg. There is no evidence of significant pericardial effusion. After noting his heart rate would go into the 130s and he has known CAD and is not on a beta-leslie as it had been previously discontinued for symptomatic bradycardia he was restarted on metoprolol 25 mg twice daily and tolerated it well while inpatient and will be sent home with a prescription for this as well as 5 days of Augmentin and hydrocodone for pain. A/P: Acute appendicitis hypertension hyperlipidemia atrial fibrillation S/p gastric bypass S/p CABG Greater than 30 minutes spent on d/c home Discharge Information Condition at Discharge: Improved Follow Up: Weeks (1) Disposition/Orders: D/C to Home Scheduled Amoxicillin/Potassium Clav (Amox Tr-K Clv 875-125 Mg Tab) 1 Each Tablet, 1 TAB PO BID for Appendicitis for 5 Days, #10 Prescribed by: SAULO LIN MD on 05/13/20 1017 Atorvastatin Calcium (Lipitor) 40 Mg Tablet, 1 TAB PO QHS, #90 Ref 1 (Reported) Entered as Reported by: NICOLE LAM on 03/19/15 1140 Last Action: Continued on 05/11/201648 by HUSSAIN AYON RN Ca Cmb No.1/Vit D3/B-6/Fa/B12 (Vitamin D3 1,000 Unit Tablet) 1 Each Tablet, 1 EACH PO DAILY, (Reported) Entered as Reported by: ROMIE WORTHY on 07/30/13 0940 Last Action: Converted on 05/11/201648 by HUSSAIN AYON RN Cyanocobalamin (Vitamin B-12) (B-12) 250 Mcg Tablet, 250 MCG PO DAILY, (Reported) Entered as Reported by: NICOLE LAM on 03/19/15 1142 Last Action: Converted on 05/11/201648 by HUSSAIN AYON RN Dabigatran Etexilate Mesylate (Pradaxa) 150 Mg Capsule, 150 MG PO BID, (Reported) Entered as Reported by: ROMIE WORTHY on 07/30/13939 Last Action: Reviewed on 05/11/201511 by HUSSAIN AYON RN Folic Acid (Folic Acid) 0.8 Mg Capsule, 1 MG PO DAILY for supplement, (Reported) Entered as Reported by: HUSSAIN AYON RN on 05/11/201550 Last Action: Converted on 05/11/201648 by HUSSAIN AYON RN Furosemide (Furosemide) 40 Mg Tablet, 40 MG PO DAILY, (Reported) Entered as Reported by: ROMIE WORTHY on 07/30/13939 Last Action: Continued on 05/11/201648 by HUSSAIN AYON RN Magnesium Oxide (Magnesium Oxide) 400 Mg Tablet, 400 MG PO BID, (Reported) Entered as Reported by: ROMIE WORTHY on 07/30/13939 Last Action: Converted on 05/11/201648 by HUSSAIN AYON RN Melatonin (Melatonin) 3 Mg Tablet, 10 MG PO HS, (Reported) Entered as Reported by: NICOLE LAM on 03/19/15 1144 Last Action: Converted on 05/11/201648 by HUSSAIN AYON RN Metoprolol Succinate (Metoprolol Succinate ( Xl )) 25 Mg Tab.er.24h, 0.5 TAB PO DAILY for CHF/Afib for 30 Days, #15 Ref 2 Prescribed by: SAULO LIN MD on 05/13/20 1017 Multivitamin (One-Daily Multi-Vitamin) 1 Each Tablet, 1 EACH PO DAILY for Supplement, (Reported) Entered as Reported by: UHSSAIN AYON RN on 05/11/201550 Last Action: Converted on 05/11/201648 by HUSSAIN AYON RN Potassium Chloride (Klor-Con 10) 10 Meq Tablet.er, 10 MEQ PO DAILY, (Reported) Entered as Reported by: ROMIE WORTHY on 12/3/13 0940 Last Action: Continued on 05/11/20 1649 by HUSSAIN AYON RN Scheduled PRN Hydrocodone Bit/Acetaminophen (Hydrocodone-Apap 5-325 ) 1 Tab Tablet, 1 TAB PO PRN Q4HRS PRN for MODERATE PAIN for 6 Days, #15 Prescribed by: SAULO LIN MD on 05/13/20 1017 Discontinued Medications Amiodarone Hcl (Amiodarone Hcl) 200 Mg Tablet, 100 MG PO DAILY, (Reported) Entered as Reported by: ROMIE WORTHY on 07/30/13 0940 Last Action: Discontinued on 05/11/20 1753 by HUSSAIN AYON RN Lisinopril (Lisinopril) 2.5 Mg Tablet, 1 TAB PO DAILY, #30 Ref 5 (Reported) Entered as Reported by: NICOLE LAM on 03/19/15 1143 Last Action: Discontinued on 05/11/20 1512 by HUSSAIN AYON RN Naproxen Sodium (Aleve) 220 Mg Capsule, 220 MG PO PRN PRN for PAIN, (Reported) Entered as Reported by: NICOLE LAM on 03/19/15 1141 Last Action: Reviewed on 05/11/20 151 by HUSSAIN AYON RN Vitamin A (Vitamin A) 10,000 Unit Capsule, 10,000 UNIT PO DAILY, (Reported) Entered as Reported by: ROMIE WORTHY on 07/30/1340 Last Action: Discontinued on 05/11/20 1551 by HUSSAIN AYON RN Justicifation of Admission Dx: Justifications for Admission: Justification of Admission Dx: Yes SAULO LIN MD May 13, 2020 11:45
--- NOTE | 2020-05-13 12:34 | NUR ---
Discharge Note: DAVID HERNANDEZ [address] [place] [address] Discharge instructions and discharge home medications reviewed with Patient and a copy given. All questions have been answered and understanding verbalized. The following instructions and handouts were given: Lap/appi, care after Discontinued IV line Patient discharged to home with self care via wheelchair
--- NOTE | 2020-05-13 16:07 | PATHOLOGY ---
[facility] Accession Number: [id number] . 01 Material submitted: . appendix - APPENDIX . 01 Clinical history: . APPENDICITIS . 02 Diagnosis: Appendix, laparoscopic appendectomy: - Acute appendicitis, involving base of appendix. LBQ 05/13/2020 1402 Local . 02 Comment: There is no evidence of malignancy. (JPM/db; 05/13/2020) . 02 Electronically signed: . Stephon Hernandez MD, Pathologist NPI- [id number] . 01 Gross description: . The specimen is received in formalin, labeled "Juan F Sprofera, appendix". Received is a vermiform appendix measuring 6.3 cm in length by up to 1.3 cm in diameter with a moderate amount of attached mesoappendix. The serosal surface is pink-sierra and shaggy in appearance. The surgical margin is closed with a line of johnnie. The johnnie are removed and the new margin is inked black. Sectioning reveals a patent lumen filled with blood coagulum. The specimen is submitted representatively in cassettes A1 and A2, with the proximal margin and bisected tip submitted in cassette A1. ([facility]; 05/12/2020) QA/QA 05/12/2020 1713 Local . 02 Pathologist provided ICD-10: K35.80 . 02 CPT . 657938 Specimen Comment: A courtesy copy of this report has been sent to [phone], [phone] Specimen Comment: [id number], Specimen Comment: Report sent to ,DR CERDA / DR DURAN Performed at: [address], [place], [place] [id number] MD John Moctezuma MD Phone: [phone] Performed at: [address] [id number] MD Stephon Hernandez MD Phone: [phone]
== END 2020-05-13 12:36 | disposition home or self-care (01) | DRG 341 ==
LOC: ER 07:51 → 2 NORTH 12:16
PROVIDERS: ADMIT Internal Medicine; ATTEND Internal Medicine
PROC: 0DTJ4ZZ Resection of Appendix, Percutaneous Endoscopic Approach (ICD-10-PCS; principal; 2020-05-12 07:30)
DX: K35.80 Unspecified acute appendicitis (principal); R65.11 Systemic inflammatory response syndrome (SIRS) of non-infectious origin with acute organ dysfunction; K85.90 Acute pancreatitis without necrosis or infection, unspecified; E87.1 Hypo-osmolality and hyponatremia; E87.2 Acidosis; I48.21 Permanent atrial fibrillation; I50.42 Chronic combined systolic (congestive) and diastolic (congestive) heart failure; Z79.01 Long term (current) use of anticoagulants; E11.9 Type 2 diabetes mellitus without complications; E78.00 Pure hypercholesterolemia, unspecified; E78.5 Hyperlipidemia, unspecified; F03.90 Unspecified dementia, unspecified severity, without behavioral disturbance, psychotic disturbance, mood disturbance, and anxiety; I11.0 Hypertensive heart disease with heart failure; I25.10 Atherosclerotic heart disease of native coronary artery without angina pectoris; K22.70 Barrett's esophagus without dysplasia; K74.60 Unspecified cirrhosis of liver; Z20.828 Contact with and (suspected) exposure to other viral communicable diseases; Z82.49 Family history of ischemic heart disease and other diseases of the circulatory system; Z83.3 Family history of diabetes mellitus; Z87.891 Personal history of nicotine dependence; Z95.1 Presence of aortocoronary bypass graft; Z98.84 Bariatric surgery status; K21.9 Gastro-esophageal reflux disease without esophagitis; M19.90 Unspecified osteoarthritis, unspecified site; Z88.8 Allergy status to other drugs, medicaments and biological substances; I25.2 Old myocardial infarction; Z90.49 Acquired absence of other specified parts of digestive tract
CPT/HCPCS: 36415; 74177; 80053; 80061; 81001; 83605; 83615; 83690; 84443; 85025; 85027; 85610; 86140; 87040; 87426; 88304; 93306; 96365; 96375; 99285; J0330; J0780; J1100; J1170; J2270; J2405; J2543; J2704; J2710; J3010; J3490; J7030; J7120; Q9966; Q9967; G0378; U0003-CS